=== PATIENT | male | born 1950 | race Caucasian/White ===

== ENCOUNTER → 2022-04-05 15:22 | Outpatient (BNVA) | payer MEDICARE, SELFPAY | PROVIDERS: PCP Internal Medicine; Visit Provider Psychiatry & Neurology Neurology | DX: G20 Parkinson's disease (principal); F03.90 Unspecified dementia, unspecified severity, without behavioral disturbance, psychotic disturbance, mood disturbance, and anxiety; R44.3 Hallucinations, unspecified | CPT/HCPCS: Q3014 ==

== ENCOUNTER 2022-05-02 10:08 | Emergency (ER) | payer MEDICARE, SELFPAY ==
--- NOTE | ~2022-05-02 | XR_ITS ---
EXAMINATION: XR CHEST CLINICAL INFORMATION: Acute mental status change COMPARISON: None TECHNIQUE: 2 views of the chest were obtained. FINDINGS: The cardiac silhouette is enlarged. Hilar and mediastinal contours are unremarkable. The lungs are are. There is no pleural effusion or pneumothorax. There are degenerative changes of the spine. There is distended bowel under the left hemidiaphragm. XR/XR chest 2V IMPRESSION: Enlarged cardiac silhouette. Distended bowel below the left hemidiaphragm.
--- NOTE | ~2022-05-02 | CT_ITS ---
EXAMINATION: CT ABDOMEN AND PELVIS WITHOUT CONTRAST CLINICAL INFORMATION: Distended bowel. Mental status change. COMPARISON: None TECHNIQUE: Multidetector volumetric imaging was performed from the superior aspect of the liver through the pubic symphysis. Sagittal and coronal reformatted images were obtained on the technologist's workstation. This CT examination was performed using dose optimization techniques as appropriate, variously including the following: *Automated exposure control *Adjustment of mA and/or kV according to patient size (this includes techniques or standardized protocols for targeted exams where dose is matched to indication/reason for exam; i.e. extremities or head) *Use of iterative reconstruction technique DLP: 789 mGy-cm FINDINGS: LUNG BASES: The visualized lung bases are unremarkable. LIVER, GALLBLADDER, AND BILIARY TREE: The liver is normal in size, shape, and attenuation. No focal hepatic lesion or biliary ductal dilatation is present. The gallbladder is unremarkable with no evidence of radiopaque gallstones, gallbladder wall thickening, or obvious pericholecystic inflammatory changes. PANCREAS: Unremarkable. SPLEEN: Unremarkable. ADRENAL GLANDS: Unremarkable. KIDNEYS AND URETERS: There is moderate to severe bilateral hydronephrosis. There are multiple small bilateral renal stones. There are bilateral renal cysts. Left ureter is dilated down to the bladder. The right ureter is difficult to follow but also appears dilated. BLADDER: The bladder is very full. GASTROINTESTINAL TRACT: The stomach is dilated and air-filled. There is a large amount of stool throughout the colon. Colon is a slightly dilated. The small bowel does not appear dilated. The appendix is normal.. ABDOMINAL WALL: There is a small umbilical hernia containing fat. LYMPH NODES: Normal. VASCULAR: Unremarkable. PELVIC VISCERA: The prostate gland is slightly enlarged measuring 3.7 x 4.9 cm in AP and transverse dimension. OSSEOUS STRUCTURES: There is severe arthritis at the right hip. There are mild degenerative changes of the spine and left hip. CT/CT abdomen pelvis wo con IMPRESSION: Very distended bladder. Moderate to severe bilateral hydronephrosis and ureteral dilatation. Small bilateral renal stones. Bilateral renal cysts. Severe constipation//obstipation. Air-filled distended stomach. No caliber change or transition zone to suggest mechanical obstruction. Fleischner guidelines were followed.
--- NOTE | ~2022-05-02 | CT_ITS ---
EXAMINATION: CT CHEST WITHOUT CONTRAST CLINICAL INFORMATION: Acute mental status change. Enlarged cardiac silhouette. COMPARISON: Previous chest x-ray from earlier the same day TECHNIQUE: Multidetector volumetric CT imaging of the chest was done. Axial MIP volume rendering provided. Sagittal and coronal reformatted images were obtained. This CT examination was performed using dose optimization techniques as appropriate, variously including the following: *Automated exposure control *Adjustment of mA and/or kV according to patient size (this includes techniques or standardized protocols for targeted exams where dose is matched to indication/reason for exam; i.e. extremities or head) *Use of iterative reconstruction technique DLP: 348 mGy-cm FINDINGS: ENVIRONMENTAL HEALTH SPECIALIST: LUNGS: There are patchy areas of groundglass attenuation seen in the right upper lobe and superior segment of the right lower lobe. This has a peribronchial distribution and may be related to airways disease. There is a 2 mm right upper lobe nodule axial image 109. There is a 2 mm calcified right upper lobe nodule axial image 128 series 9. There is a 2 mm calcified left upper lobe nodule axial image 219 series 9. There is a 2 mm calcified right lower lobe nodule axial image 327 series 9. There is a 2 mm question calcified left lower lobe nodule axial image 312 series 9 image 346 series 9. There is a 4 mm noncalcified left lower lobe nodule axial image 358 series 9. There is dependent atelectasis at the lung bases. MEDIASTINUM: The heart size is normal. There is no pericardial effusion. There is wall thickening of the distal thoracic esophagus. There are no enlarged hilar or mediastinal lymph nodes. The visualized thyroid gland is normal. PLEURA: There is no pleural effusion. No pleural mass or thickening. AXILLA: No lymphadenopathy. UPPER ABDOMEN: See CT of the abdomen and pelvis from the same day OSSEOUS STRUCTURES: There are mild degenerative changes of the spine. CT/CT chest wo con IMPRESSION: Normal heart size. Wall thickening of the mid and distal thoracic aorta. Patchy groundglass attenuation areas in the right upper lobe and superior segment right lower lobe question representing airways disease. Small calcified and noncalcified pulmonary nodules or micronodules. According to the UPDATED 2017 Fleischner Society recommendations, the advised follow-up imaging for less than 6 mm solid nodule: Low risk, no chest CT follow-up and high risk, optional chest CT follow-up in one year. Fleischner guidelines were followed.
--- NOTE | ~2022-05-02 | CT_ITS ---
EXAMINATION: CT HEAD WITHOUT CONTRAST CLINICAL INFORMATION: Altered mental status COMPARISON: None TECHNIQUE: Contiguous axial imaging was performed from the skull base to vertex without intravenous administration of contrast. Additional 2-D coronal and sagittal reformatted images are generated on the CT workstation and uploaded to PACS. This CT examination was performed using dose optimization techniques as appropriate, variously including the following: *Automated exposure control *Adjustment of mA and/or kV according to patient size (this includes techniques or standardized protocols for targeted exams where dose is matched to indication/reason for exam; i.e. extremities or head) *Use of iterative reconstruction technique DLP: 863 mGy-cm FINDINGS: There is no intracranial hemorrhage, hematoma, or extra-axial fluid collection. The ventricles are normal in size. There is no hydrocephalus, edema, or mass effect. There are mild atrophic changes with prominence of the cortical sulci. Saenz-white matter differentiation appears symmetric. There is no visible acute territorial infarct or mass lesion. The calvarium appears intact. There is no pneumocephalus or orbital emphysema. The visualized sinuses and middle ears and mastoid air cells show no significant mucosal thickening. There are no air-fluid levels. CT/CT head/brain wo con IMPRESSION: No acute intracranial abnormality.
[2022-05-02 10:17] VITALS: BP 135/75; PULSE 84; O2SAT 98; BMI 25.4
--- NOTE | 2022-05-02 10:24 | ED_ITS ---
HPI - General Adult General Chief complaint: Altered Mental Status Stated complaint: +COVID ,WEAK Time Seen by Provider: 05/02/22 10:24 Source: patient and EMS Mode of arrival: EMS Limitations: altered mental status History of Present Illness HPI narrative: Patient is a 71 year old male presenting to the emergency department today with altered mental status, COVID-19, and diarrhea. Patient is unable to appropriately answer my questions. Staff at [facility], where the patient comes from, states that the patient is more altered than usual and has been having diarrhea, often. Staff states that the patient was COVID-19 positive as of 9 days ago and has a history of parkinsons disease. Staff also states that the patient is on doxycycline for a left lower leg infection. Onset (ago): day(s) Radiation: non-radiation Severity: moderate Severity scale (1-10): 5 Relieving factors: none Exacerbating factors: none Associated symptoms: confusion Treatments prior to arrival: none Related Data Home Medications Medication Instructions Recorded Confirmed acetaminophen 325 mg tablet 650 mg PO BID PRN 04/05/22 04/05/22 (Tylenol) carbidopa 25 mg-levodopa 100 mg 1 tab PO QID 04/05/22 04/05/22 tablet Previous Rx's Medication Instructions Recorded carbidopa ER 25 mg-levodopa 100 mg 1 tab PO BEDTIME #90 tabs 11/26/21 tablet,extended release citalopram 20 mg tablet 20 mg PO DAILY #30 tabs 01/19/22 pimavanserin 10 mg tablet 10 mg PO DAILY #30 tabs 04/05/22 (Nuplazid) memantine 14 mg capsule 14 mg PO DAILY #90 caps 04/11/22 sprinkle,extended release 24hr Allergies Allergy/AdvReac Type Severity Reaction Status Date / Time Unable to Assess Allergy Verified 05/02/22 10:28 Review of Systems Review of Systems: Yes Unobtainable due to mental status Constitutional: Constitutional: Reports no additional constitutional com plaints, Denies chills, Denies fever(s) and Denies night sweats Eyes: Eyes: Reports no additional eye complaints, Denies blurry vision, Denies change in vision, Denies diplopia, Denies eye discharge, Denies loss of vision and Denies eye pain ENT: Denies dizziness Cardiovascular: Cardiovascular: Reports no additional cardiovascular complaints, Denies chest pain, Denies lightheadedness, Denies Loss of Consciousness and Denies dyspnea Respiratory: Respiratory: Reports no additional respiratory complaints and Denies dyspnea Gastrointestinal: Gastrointestinal: Reports no additional gastrointestinal complaints, Denies abdominal pain, Denies melena, Denies hematochezia, Denies change in bowel habits and Denies change in stool character Genitourinary: Genitourinary: Reports no additional male genitourinary complaints, Denies hematuria, Denies oliguria, Denies difficulty urinating, Denies dysuria, Denies urinary frequency, Denies urinary hesitancy, Denies urinary incontinence and Denies urinary urgency Musculoskeletal: Musculoskeletal: Reports no additional musculoskeletal complaints, Denies numbness and Denies tingling Neurologic: Reports confusion, Denies dizziness, Denies loss of vision, Denies numbness and Denies tingling Psychiatric: Psychiatric: Reports no additional psychiatric complaints and Reports confusion Endocrine: Endocrine: Reports no additional endocrine complaints Hematologic/Lymphatic: Hematologic/Lymphatic: Reports no additional hematologic/lymphatic complaints Allergic/Immunologic: Allergic/Immunologic: Reports no additional allergic/immunologic complaints PMFSH Past Medical History Attestation statement: The following information was validated with the patient. (validated with patient's daughter) Source: old records reviewed and obtained from family (patient's daughter) Surgical History Hx of knee surgery Family History Family History Father Brain tumor Social History Social History Alcohol intake: never Patient Tobacco Use Status: Never used Tobacco Advance Directives: No Advance Directives Information Provided: No Physical Exam ED Vital Signs: Vital Signs - 24 hr 05/02/22 10:48 05/02/22 18:00 05/02/22 19:54 Temperature 99.2 F 99.5 F Pulse Rate 79 69 82 Respiratory Rate 16 12 14 Blood Pressure 137/89 145/63 H 135/87 Pulse Oximetry 98 98 Oxygen Delivery Method Room Air Room Air BMI result Body Mass Index 25.4 Const General: cooperative, no acute distress, alert, awake and confusion Nutritional Appearance: well nourished Orientation/consciousness: confusion Limitations: no limitations HENMT Head: Yes normal to inspection and Yes atraumatic Ears: hearing grossly normal bilaterally and external ears normal General nose exam: Normal external nose present, no nasal discharge noted and no epistaxis Face and sinus: Yes normal facial exam, No abrasion and No laceration Mouth: Normal oral and palatal mucosa present, no drooling and no muffled voice Eyes General: appearance normal, both eyes and all related structures Periorbital: periorbital findings normal Eyelids: Yes eyelids normal Conjunctivae: conjunctivae normal Pupils: Equal, round and reactive pupils present EOM: EOMs intact bilaterally Neck Neck: Yes normal visual inspection, Yes full ROM and Yes no lymphadenopathy Chest Chest palpation & inspection: normal inspection of the chest Resp Effort & Inspection: normal respiratory effort and able to speak in complete sentences Auscultation: clear to auscultation bilaterally Cardio Rate: regular rate Rhythm: regular rhythm GI Inspection: Yes normal to inspection Neuro General: moves all extremities and confusion Cranial nerves: Yes Equal, round and reactive pupils present Extrem General: Yes normal to inspection, Yes full ROM and Yes capillary refill normal Psych Appearance: grossly normal Mental Status: mental status grossly normal Affect: normal affect Attitude: cooperative Thought process: Normal thought process present Thought content: Normal thought content present Insight: Good insight present (Psych) Medical Decision Making MDM Narrative Medical decision making narrative: Patient is a 71 year old male presenting to the emergency department today with altered mental status. Patient's physical exam showed a profoundly confused individual. Patient's blood work was unremarkable. Patient's urine showed no acute process. Patient's EKG was unremarkable. Patient's chest x-ray showed an enlarged cardiac silhouette and distended bowel below the left hemidiaphragm. Patient's head CT was normal. Patient's chest CT was unremarkable. Patient's abdominal CT showed a markedly distended bladder and a very large stool burden but no signs of mechanical obstruction. Patient had a fonseca catheter placed which immediately expelled 1,500mL of urine. I explained my physical exam findings as well as all test results to the patient and the patient's daughter. I answered all questions asked by the patient and the patient's daughter. Patient is going to receive an enema to assist with the constipation. Patient ne eds to be placed in retirement and not return to his assisted living facility. Case management is aware of the patient and working on placement. At 1100, patient was determined to not have Sepsis or to be in septic shock. Differential Diagnosis Differential Diagnosis: constipation, urinary retention, failure to thrive, weakness Medical Records Medical records reviewed: Yes I reviewed the patient's medical records. Lab Data Lab results reviewed: Yes I reviewed the patient's lab results. Result diagrams: 05/02/22 10:43 05/02/22 10:43 Labs: Lab Results 05/02/22 05/02/22 05/02/22 Range/Units 10:43 10:43 10:43 WBC 6.7 (4.8-10.8) X10*3/uL RBC 3.83 L (4.60-5.80) X10*6/uL Hgb 11.3 L (14.0-18.0) g/dl Hct 35.7 L (42.0-52.0) % MCV 93.2 (80.0-98.0) fL MCH 29.5 (27.0-33.0) pg MCHC 31.7 (31.0-36.0) g/dl RDW 15.1 (11.0-16.0) % Plt Count 261 (160-400) X10*3/uL MPV 8.9 L (9.4-12.4) fL Immature Gran % (Auto) 0.6 H (0.0-0.4) % Neut % (Auto) 72.7 (45-73) % Lymph % (Auto) 17.7 L (20-40) % [place] % (Auto) 8.5 (2-11) % Eos % (Auto) 0.4 (0-4) % Baso % (Auto) 0.1 (0-2) % Lymph # (Auto) 1.2 (1.2-4.9) X10*3/uL [place] # (Auto) 0.6 (0.1-1.2) X10*3/uL Eos # (Auto) 0.0 (0.0-0.4) X10*3/uL Baso # (Auto) 0.0 (0.0-0.2) X10*3/uL Abs Immat Gran (auto) 0.04 H (0.00-0.03) X10*3/uL Absolute Neuts (auto) 4.9 (2.0-8.3) x10*3/uL Absolute Nucleated RBC 0.000 (0.0-0.012) X10*3/uL Nucleated RBC % (auto) 0.0 (0.0-0.2) /100WBC VBG pH (7.32-7.43) VBG pCO2 mmHg VBG pO2 mmHg VBG HCO3 (22-26) mmol/L VBG O2 Saturation % VBG Base Excess mmol/L Sodium 143 (135-145) mmol/L Potassium 4.1 (3.3-5.1) mmol/L Chloride 109 H (96-108) mmol/L Carbon Dioxide 27 (22-29) mmol/L Anion Gap 11 L (12-20) BUN 31 H (9-16) mg/dL Creatinine 1.02 (0.5-1.4) mg/dL Estim Creat Clear Calc 64.2 Estimated GFR > 60 Random Glucose 98 (60-115) mg/dL Lactic Acid 1.0 (0.5-2.0) mmol/L Calcium 9.7 (8.4-10.2) mg/dL Magnesium 2.4 (1.6-2.6) mg/dL Total Bilirubin 0.8 (0.0-1.0) mg/dL AST 9 (5-37) U/L ALT 6 (0-40) U/L Alkaline Phosphatase 105 (39-117) U/L Troponin I High Sens (<3.5-35.0) ng/L B-Natriuretic Peptide (<100) pg/mL Total Protein 7.5 (6.5-8.0) g/dL Albumin 4.5 (3.5-5.0) g/dL COVID-19 (JUAN) (Negative) COVID-19 Clin Com Influenza Type A (DANUTA) (Negative) Influenza Type B (DANUTA) (Negative) Influenza A & B Note 05/02/22 05/02/22 05/02/22 Range/Units 10:43 10:46 10:54 WBC (4.8-10.8) X10*3/uL RBC (4.60-5.80) X10*6/uL Hgb (14.0-18.0) g/dl Hct (42.0-52.0) % MCV (80.0-98.0) fL MCH (27.0-33.0) pg MCHC (31.0-36.0) g/dl RDW (11.0-16.0) % Plt Count (160-400) X10*3/uL MPV (9.4-12.4) fL Immature Gran % (Auto) (0.0-0.4) % Neut % (Auto) (45-73) % Lymph % (Auto) (20-40) % [place] % (Auto) (2-11) % Eos % (Auto) (0-4) % Baso % (Auto) (0-2) % Lymph # (Auto) (1.2-4.9) X10*3/uL [place] # (Auto) (0.1-1.2) X10*3/uL Eos # (Auto) (0.0-0.4) X10*3/uL Baso # (Auto) (0.0-0.2) X10*3/uL Abs Immat Gran (auto) (0.00-0.03) X10*3/uL Absolute Neuts (auto) (2.0-8.3) x10*3/uL Absolute Nucleated RBC (0.0-0.012) X10*3/uL Nucleated RBC % (auto) (0.0-0.2) /100WBC VBG pH 7.34 (7.32-7.43) VBG pCO2 41 mmHg VBG pO2 43 mmHg VBG HCO3 22 (22-26) mmol/L VBG O2 Saturation 66.0 % VBG Base Excess -2.9 mmol/L Sodium (135-145) mmol/L Potassium (3.3-5.1) mmol/L Chloride (96-108) mmol/L Carbon Dioxide (22-29) mmol/L Anion Gap (12-20) BUN (9-16) mg/dL Creatinine (0.5-1.4) mg/dL Estim Creat Clear Calc Estimated GFR Random Glucose (60-115) mg/dL Lactic Acid (0.5-2.0) mmol/L Calcium (8.4-10.2) mg/dL Magnesium (1.6-2.6) mg/dL Total Bilirubin (0.0-1.0) mg/dL AST (5-37) U/L ALT (0-40) U/L Alkaline Phosphatase (39-117) U/L Troponin I High Sens < 3.5 (<3.5-35.0) ng/L B-Natriuretic Peptide 28 (<100) pg/mL Total Protein (6.5-8.0) g/dL Albumin (3.5-5.0) g/dL COVID-19 (JUAN) (Negative) COVID-19 Clin Com Influenza Type A (DANUTA) Negative (Negative) Influenza Type B (DANUTA) Negative (Negative) Influenza A & B Note See Note 05/02/22 Range/Units 19:18 WBC (4.8-10.8) X10*3/uL RBC (4.60-5.80) X10*6/uL Hgb (14.0-18.0) g/dl Hct (42.0-52.0) % MCV (80.0-98.0) fL MCH (27.0-33.0) pg MCHC (31.0-36.0) g/dl RDW (11.0-16.0) % Plt Count (160-400) X10*3/uL MPV (9.4-12.4) fL Immature Gran % (Auto) (0.0-0.4) % Neut % (Auto) (45-73) % Lymph % (Auto) (20-40) % [place] % (Auto) (2-11) % Eos % (Auto) (0-4) % Baso % (Auto) (0-2) % Lymph # (Auto) (1.2-4.9) X10*3/uL [place] # (Auto) (0.1-1.2) X10*3/uL Eos # (Auto) (0.0-0.4) X10*3/uL Baso # (Auto) (0.0-0.2) X10*3/uL Abs Immat Gran (auto) (0.00-0.03) X10*3/uL Absolute Neuts (auto) (2.0-8.3) x10*3/uL Absolute Nucleated RBC (0.0-0.012) X10*3/uL Nucleated RBC % (auto) (0.0-0.2) /100WBC VBG pH (7.32-7.43) VBG pCO2 mmHg VBG pO2 mmHg VBG HCO3 (22-26) mmol/L VBG O2 Saturation % VBG Base Excess mmol/L Sodium (135-145) mmol/L Potassium (3.3-5.1) mmol/L Chloride (96-108) mmol/L Carbon Dioxide (22-29) mmol/L Anion Gap (12-20) BUN (9-16) mg/dL Creatinine (0.5-1.4) mg/dL Estim Creat Clear Calc Estimated GFR Random Glucose (60-115) mg/dL Lactic Acid (0.5-2.0) mmol/L Calcium (8.4-10.2) mg/dL Magnesium (1.6-2.6) mg/dL Total Bilirubin (0.0-1.0) mg/dL AST (5-37) U/L ALT (0-40) U/L Alkaline Phosphatase (39-117) U/L Troponin I High Sens (<3.5-35.0) ng/L B-Natriuretic Peptide (<100) pg/mL Total Protein (6.5-8.0) g/dL Albumin (3.5-5.0) g/dL COVID-19 (JUAN) Positive A (Negative) COVID-19 Clin Com See Note Influenza Type A (DANUTA) (Negative) Influenza Type B (DANUTA) (Negative) Influenza A & B Note Imaging Data CT scan - head: Attestation: I personally reviewed and interpreted this imaging study as follows: My impression: No acute process. Radiologist's impression: EXAMINATION: CT HEAD WITHOUT CONTRAST CLINICAL INFORMATION: Altered mental status? COMPARISON: None TECHNIQUE: Contiguous axial imaging was performed from the skull base to vertex without intravenous administration of contrast.? Additional 2-D coronal and sagittal reformatted images are generated on the CT workstation and uploaded to PACS. This CT examination was performed using dose optimization techniques as appropriate, variously including the following: *Automated exposure control *Adjustment of mA and/or kV according to patient size (this includes techniques or standardized protocols for targeted exams where dose is matched to indication/reason for exam; i.e. extremities or head) *Use of iterative reconstruction technique DLP: 863 mGy-cm FINDINGS: There is no intracranial hemorrhage, hematoma, or extra-axial fluid collection.? The ventricles are normal in size. There is no hydrocephalus, edema, or mass effect.? There are mild atrophic changes with prominence of the cortical sulci. Saenz-white matter differentiation appears symmetric. There is no visible acute territorial infarct or mass lesion. The calvarium appears intact. There is no pneumocephalus or orbital emphysema.? The visualized sinuses and middle ears and mastoid air cells show no significant mucosal thickening. There are no air-fluid levels. CT/CT head/brain wo con IMPRESSION: No acute intracranial abnormality. Dictated By: Stanford Rhodes MD Signed By: Electronically signed by Stanford Rhodes MD 05/02/22 1245 Chest x-ray: Attestation: I personally reviewed and interpreted this imaging study as follows: My impression: Widened cardiac silhouette. Radiologist's impression: EXAMINATION: XR CHEST CLINICAL INFORMATION: Acute mental status change COMPARISON: None TECHNIQUE: 2 views of the chest were obtained. FINDINGS: The cardiac silhouette is enlarged. Hilar and mediastinal contours are unremarkable. The lungs are are. There is no pleural effusion or pneumothorax. There are degenerative changes of the spine. There is distended bowel under the left hemidiaphragm. XR/XR chest 2V IMPRESSION: Enlarged cardiac silhouette. Distended bowel below the left hemidiaphragm. Dictated By: Chani Zambrano MD Signed By: Electronically signed by Chani Zambrano MD 05/02/[address] scan - chest: Attestation: I personally reviewed and interpreted this imaging study as follows: My impression: No acute process. Radiologist's impression: EXAMINATION: CT CHEST WITHOUT CONTRAST CLINICAL INFORMATION: Acute mental status change. Enlarged cardiac silhouette.? COMPARISON: Previous chest x-ray from earlier the same day? TECHNIQUE: Multidetector volumetric CT imaging of the chest was done. Axial MIP volume rendering provided. Sagittal and coronal reformatted images were obtained.? This CT examination was performed using dose optimization techniques as appropriate, variously including the following: *Automated exposure control *Adjustment of mA and/or kV according to patient size (this includes techniques or standardized protocols for targeted exams where dose is matched to indication/reason for exam; i.e. extremities or head) *Use of iterative reconstruction technique DLP: 348 mGy-cm FINDINGS: PRICE LISTER: LUNGS: There are patchy areas of groundglass attenuation seen in the right upper lobe and superior segment of the right lower lobe. This has a peribronchial distribution and may be related to airways disease. There is a 2 mm right upper lobe nodule axial image 109. There is a 2 mm calcified right upper lobe nodule axial image 128 series 9. There is a 2 mm calcified left upper lobe nodule axial image 219 series 9. There is a 2 mm calcified right lower lobe nodule axial image 327 series 9. There is a 2 mm question calcified left lower lobe nodule axial image 312 series 9 image 346 series 9. There is a 4 mm noncalcified left lower lobe nodule axial image 358 series 9. There is dependent atelectasis at the lung bases. MEDIASTINUM: The heart size is normal. There is no pericardial effusion. There is wall thickening of the distal thoracic esophagus. There are no enlarged hilar or mediastinal lymph nodes. The visualized thyroid gland is normal. PLEURA: There is no pleural effusion. No pleural mass or thickening.? AXILLA: No lymphadenopathy.? UPPER ABDOMEN: See CT of the abdomen and pelvis from the same day OSSEOUS STRUCTURES: There are mild degenerative changes of the spine.? CT/CT chest wo con IMPRESSION: Normal heart size. Wall thickening of the mid and distal thoracic aorta. Patchy groundglass attenuation areas in the right upper lobe and superior segment right lower lobe question representing airways disease. Small calcified and noncalcified pulmonary nodules or micronodules. According to the UPDATED 2017 Fleischner Society recommendations, the advised follow-up imaging for less than 6 mm solid nodule: Low risk, no chest CT follow-up and high risk, optional chest CT follow-up in one year. ? Fleischner guidelines were followed. Dictated By: Chani Zambrano MD Signed By: Electronically signed by Chani Zambrano MD 05/02/[address] scan - abdomen: Attestation: I personally reviewed and interpreted this imaging study as follows: My impression: Large stool burden and very distended bladder. Radiologist's impression: EXAMINATION: CT ABDOMEN AND PELVIS WITHOUT CONTRAST? CLINICAL INFORMATION: Distended bowel. Mental status change.? COMPARISON: None TECHNIQUE: Multidetector volumetric imaging was performed from the superior aspect of the liver through the pubic symphysis. Sagittal and coronal reformatted images were obtained on the technologist's workstation.? This CT examination was performed using dose optimization techniques as appropriate, variously including the following: *Automated exposure control *Adjustment of mA and/or kV according to patient size (this includes techniques or standardized protocols for targeted exams where dose is matched to indication/reason for exam; i.e. extremities or head) *Use of iterative reconstruction technique DLP: 789 mGy-cm FINDINGS: LUNG BASES: The visualized lung bases are unremarkable.? LIVER, GALLBLADDER, AND BILIARY TREE: The liver is normal in size, shape, and attenuation. No focal hepatic lesion or biliary ductal dilatation is present. The gallbladder is unremarkable with no evidence of radiopaque gallstones, gallbladder wall thickening, or obvious pericholecystic inflammatory changes.? PANCREAS: Unremarkable.? SPLEEN: Unremarkable.? ADRENAL GLANDS: Unremarkable.? KIDNEYS AND URETERS: There is moderate to severe bilateral hydronephrosis. There are multiple small bilateral renal stones. There are bilateral renal cysts. Left ureter is dilated down to the bladder. The right ureter is difficult to follow but also appears dilated. BLADDER: The bladder is very full. GASTROINTESTINAL TRACT: The stomach is dilated and air-filled. There is a large amount of stool throughout the colon. Colon is a slightly dilated. The small bowel does not appear dilated. The appendix is normal..? ABDOMINAL WALL: There is a small umbilical hernia containing fat.? LYMPH NODES: Normal. VASCULAR: Unremarkable. PELVIC VISCERA: The prostate gland is slightly enlarged measuring 3.7 x 4.9 cm in AP and transverse dimension.? OSSEOUS STRUCTURES: There is severe arthritis at the right hip. There are mild degenerative changes of the spine and left hip.? CT/CT abdomen pelvis wo con IMPRESSION: Very distended bladder. Moderate to severe bilateral hydronephrosis and ureteral dilatation. Small bilateral renal stones. Bilateral renal cysts. Severe constipation//obstipation. Air-filled distended stomach. No caliber change or transition zone to suggest mechanical obstruction. ? Fleischner guidelines were followed. Dictated By: Chani Zambrano MD Signed By: Electronically signed by Chani Zambrano MD 05/02/22 7043 ECG Data Attestation: I personally reviewed and interpreted this ECG as follows: Prior ECG tracings: not available for review Interpretation: Vent. Rate: 078 BPM ? ? Atrial Rate: 078 BPM P-R Int: 136 ms? QRS Dur: 086 ms QT Int: 404 ms ? ? ? P-R-T Axes: 044 -13 -25 degrees QTc Int: 460 ms ? Normal sinus rhythm Nonspecific T wave abnormality Prolonged QT Abnormal ECG No previous ECGs available DD/ 1038 Discharge Plan Discharge Clinical Impression: Dementia, Parkinson's disease, Constipation, Acute urinary retention Patient Disposition: Still a Patient Prescriptions: No Action carbidopa-levodopa 25-100 mg tablet extended release 1 tab PO BEDTIME Qty: 90 3RF citalopram 20 mg tablet 20 mg PO DAILY Qty: 30 6RF memantine 14 mg capsule,sprinkle,ER 24hr 14 mg PO DAILY Qty: 90 0RF carbidopa-levodopa 25-100 mg tablet 1 tab PO QID acetaminophen [Tylenol] 325 mg tablet 650 mg PO BID PRN Nuplazid 10 mg tablet 10 mg PO DAILY Qty: 30 0RF Print Language: Brazilian
--- NOTE | 2022-05-02 10:28 | ECG_ITS ---
Test Reason : WEAKNESS Blood Pressure : / mmHG Vent. Rate : 078 BPM Atrial Rate : 078 BPM P-R Int : 136 ms QRS Dur : 086 ms QT Int : 404 ms P-R-T Axes : 044 -13 -25 degrees QTc Int : 460 ms Normal sinus rhythm Nonspecific T wave abnormality Prolonged QT Abnormal ECG No previous ECGs available Referred By: Nallely Victoria Electronically Signed By:Dez Spence
[2022-05-02 10:48] VITALS: BP 137/89; PULSE 79; RESP 16; TEMP 37.3; O2SAT 98
[2022-05-02 10:57] LABS: MANUAL DIFF FLAG NO
[2022-05-02 10:59] LABS: VBG Base Excess -2.9 mmol/L; VBG HCO3 22 mmol/L (22-26); VBG pCO2 41 mmHg; VBG pH 7.34 (7.32-7.43); VBG pO2 43 mmHg
[2022-05-02 10:59] LABS: Basophils Percent Auto 0.1 % (0-2); Eosinophils Percent Auto 0.4 % (0-4); Hematocrit 35.7 % (42.0-52.0); Hemoglobin 11.3 g/dl (14.0-18.0); Imm Gran Abs Auto 0.04 X10*3/uL (0.00-0.03); Imm Gran Pct Auto 0.6 % (0.0-0.4); Lymphocytes Absolute Auto 1.2 X10*3/uL (1.2-4.9); Lymphocytes Percent Auto 17.7 % (20-40); Mean Corpuscular HGB Conc 31.7 g/dl (31.0-36.0); Mean Corpuscular Hemoglobin 29.5 pg (27.0-33.0); Mean Corpuscular Volume 93.2 fL (80.0-98.0); Mean Platelet Volume 8.9 fL (9.4-12.4); Monocytes Absolute Auto 0.6 X10*3/uL (0.1-1.2); Monocytes Percent Auto 8.5 % (2-11); Neutrophils Absolute Auto 4.9 x10*3/uL (2.0-8.3); Neutrophils Percent Auto 72.7 % (45-73); Platelet Count 261 X10*3/uL (160-400); Red Blood Count 3.83 X10*6/uL (4.60-5.80); Red Cell Distribution Width 15.1 % (11.0-16.0); White Blood Count 6.7 X10*3/uL (4.8-10.8)
[2022-05-02 11:01] LABS: Venous Blood Gas Refer to POC result
[2022-05-02 11:13] LABS: Alanine Aminotransferase 6 U/L (0-40); Albumin Level 4.5 g/dL (3.5-5.0); Alkaline Phosphatase 105 U/L (39-117); Anion Gap 11 (12-20); Aspartate Amino Transferase 9 U/L (5-37); Bilirubin Total 0.8 mg/dL (0.0-1.0); Blood Urea Nitrogen 31 mg/dL (9-16); Calcium 9.7 mg/dL (8.4-10.2); Carbon Dioxide 27 mmol/L (22-29); Chloride 109 mmol/L (96-108); Creatinine Clr Calc Pharmacy 64.2; Estimated Glomerular Filt Rate > 60; Glucose Random 98 mg/dL (60-115); Magnesium 2.4 mg/dL (1.6-2.6); Potassium 4.1 mmol/L (3.3-5.1); Sodium 143 mmol/L (135-145); Total Protein 7.5 g/dL (6.5-8.0)
[2022-05-02 11:17] LABS: Influenza A Negative (Negative); Influenza B2 Negative (Negative)
[2022-05-02 11:38] LABS: B Type Natriuretic Peptide 28 pg/mL (<100)
[2022-05-02 11:42] LABS: Troponin-I High Sensitivity < 3.5 ng/L (<3.5-35.0)
[2022-05-02] MEDS: 0.9 % Sodium Chloride 1,000 ML 200 ML IVCONT (14:10)
--- NOTE | 2022-05-02 17:03 | MHC.CM.PN ---
Met with patient at the request of Nallely SETHI. Pt not safe to return to assisted living at this time. Pt with AMS and urinary retention. Pt had F/C placed. Pt from [facility]. Attempted to meet with patient, however pt is confused and unable to answer CM questions. CM spoke with daughter/HCP Lakeisha Okeefechristopher ([phone]). Daughter tells CM that pt has been declining over the -past several weeks and recently moved into [facility]. Pt was recently hospitalized at [facility] for 6 weeks for food impaction in his esophagus, was at [facility] and at [facility]. Daughter requests that referral be made to acute rehab and to [facility] half-way. CM explained that pt is confused and may not qualify for acute rehab. Referrals placed at acute rehab as requested and at [facility]. CM spoke with RN at [facility], who tells CM there are no beds at the snf facility today. Will look to see if they expect any bed opening tomorrow. Referral placed at [facility]. Vax/boosted x1/Pf[employer]. Pt tested positive for Covid 19 at [facility] on 04/25/22. Daughter tells CM she has been staying with patient. [place] HCP/POA requested from [facility]. Pt uses a walker. D/C plan: acute/STR. Will need transportation.
[2022-05-02 18:00] VITALS: BP 145/63; PULSE 69; RESP 12; TEMP 37.5; O2SAT 98
--- NOTE | 2022-05-02 18:13 | PC.NURSE ---
Pt alert oriented x 2 at this time. Hinojosa placed for retention, 1500CC output. IV established, soap pam enema given with minimal effect. MD aware, awaiting dispo. Will continue to monitor.
[2022-05-02 19:32] LABS: IDNOW Serial# 16C4AD1C
[2022-05-02 19:33] LABS: COVID-19 Test Positive (Negative)
[2022-05-02 19:54] VITALS: BP 135/87; PULSE 82; RESP 14; O2SAT 98
[2022-05-02 22:00] VITALS: BP 151/79; PULSE 60; RESP 17; O2SAT 98
--- NOTE | 2022-05-02 22:26 | PC.NURSE ---
pt a&ox2, denies any pain at this time, fonseca patent and draining. 1400ml dark yellow urine emptied.
--- NOTE | 2022-05-02 23:09 | PC.NURSE ---
Patient is alert and oriented x2, confused at times. patient denies any pain at present. Patient had moderate, brown, soft BM-pericare provided-patient repositioned to left side and propped with pillows.
[2022-05-03] VITALS: PULSE 74; RESP 16
[2022-05-03 06:00] VITALS: BP 121/42; PULSE 69; RESP 16; TEMP 36.6; O2SAT 97
--- NOTE | 2022-05-03 06:14 | PC.NURSE ---
PATIENT LOPEZ CATHETER OUTPUT WAS 1000 ML ,PATIENT HAD A MODERATE DARK BOWEL MOVEMENT ,BED BATH GIVEN ,PATIENT HAD SIPS OF WATER TO DRINK .
[2022-05-03 10:22] VITALS: BP 122/61; PULSE 58; RESP 18; TEMP 36.6; O2SAT 100
--- NOTE | 2022-05-03 11:01 | PC.NURSE ---
slept most of the morning, awoke at 1000, aware of where he is and the year but otherwise slightly confused, unsure how long he's been here or why. declined breakfast
--- NOTE | 2022-05-03 11:17 | PHA.MEDREC ---
Pharmacy Consult ? Medication Reconciliation Pharmacy has completed the medication reconciliation. Had a medication list fax from [facility]. Rosa Roque, ConradD
--- NOTE | 2022-05-03 12:08 | MHC.CM.ED ---
Addendum entered by Carmella Puckett 05/03/22 13:13: Patient is active with [facility]. Copy of med list obtained. Neither [facility] or [facility] are able to offer a bed. Addendum entered by Carmella Puckett 05/03/22 12:08: Patient originally tested positive for Covid on 04/25 at [facility]. Original Note: Patient remains in ER. PT and OT evals completed. Clinical updates sent to [facility]. [facility] is not able to offer a bed at this time. Continue to monitor for d/c needs.
--- NOTE | 2022-05-03 13:51 | MHC.CM.ED ---
[facility] can accept patient on 05/06, which is 11 days after the original positive Covid test. Patient's daughter, Lakeisha made aware and agreeable. Continue to monitor for d/c needs.
[2022-05-03 14:00] VITALS: RESP 16
--- NOTE | 2022-05-03 15:45 | PC.NURSE ---
Pt moved to hospital bed. pericare done.
--- NOTE | 2022-05-03 20:11 | PC.NURSE ---
PATIENT REFUSED DINNER ,BUT DRANK 120 ML JUICE .
[2022-05-03] MEDS: Melatonin 3 MG TABLET 6 MG PO (20:25)
[2022-05-03] MEDS: Carbidopa/Levodopa CR 25/100 TABLET.ER 1 TAB PO (20:39)
[2022-05-03 22:58] VITALS: BP 143/63; PULSE 63; RESP 16; TEMP 37.1; O2SAT 97
--- NOTE | 2022-05-03 22:59 | PC.NURSE ---
PATIENT LOPEZ OUT PUT IS 600 ML ,PATIENT GOT CLEAN AND REPOSITION
[2022-05-04 05:25] VITALS: BP 154/85; PULSE 70; RESP 16; O2SAT 97
[2022-05-04] MEDS: Omeprazole 20 MG CAPSULE.DR PO ×2 (05:51→17:42)
[2022-05-04] MEDS: Acetaminophen 325 MG TABLET 650 MG PO ×3 (05:51→19:03)
[2022-05-04] MEDS: Carbidopa/Levodopa 25/100 TABLET 1.5 TAB PO ×4 (05:52→19:11)
--- NOTE | 2022-05-04 09:24 | MHC.CM.ED ---
Patient remains in ER. Patient can transfer to [facility] on 05/06. Continue to monitor for d/c needs.
[2022-05-04] MEDS: Ibuprofen 600 MG TABLET PO ×2 (10:30→15:36)
[2022-05-04] MEDS: Multivitamin TABLET 1 TAB PO (10:31)
[2022-05-04] MEDS: Escitalopram Oxalate 10 MG TABLET PO (10:31)
[2022-05-04 14:20] VITALS: BP 128/71; PULSE 67; RESP 16; O2SAT 97
--- NOTE | 2022-05-04 18:09 | PC.NURSE ---
Pt has been in and out of sleep throughout the day. Assisted to commode. Alert, requiring occasional reorienting. Eating and drinking well. c/o chronic bilat hip pain, medicated as per emr.
--- NOTE | 2022-05-04 21:25 | PC.NURSE ---
medication requested from pharamcy
[2022-05-04 22:21] VITALS: BP 117/73; PULSE 72; RESP 13; TEMP 36.6; O2SAT 95
[2022-05-04] MEDS: Carbidopa/Levodopa CR 25/100 TABLET.ER 1 TAB PO (22:27)
[2022-05-05] MEDS: Omeprazole 20 MG CAPSULE.DR PO ×2 (05:41→17:20)
[2022-05-05] MEDS: Acetaminophen 325 MG TABLET 650 MG PO ×3 (05:41→19:12)
[2022-05-05] MEDS: Carbidopa/Levodopa 25/100 TABLET 1.5 TAB PO ×5 (05:41→19:12)
[2022-05-05 05:46] VITALS: BP 112/79; PULSE 69; RESP 14; TEMP 36.5; O2SAT 96
--- NOTE | 2022-05-05 07:12 | PC.NURSE ---
report taken from ginna rn- pt sleeping in bed. resp even and unlabored.nad at this time.
[2022-05-05] MEDS: Ibuprofen 600 MG TABLET PO ×2 (07:48→17:20)
[2022-05-05] MEDS: Escitalopram Oxalate 10 MG TABLET PO (07:49)
[2022-05-05] MEDS: Multivitamin TABLET 1 TAB PO (07:49)
[2022-05-05 07:52] VITALS: BP 122/76; PULSE 79; RESP 15; O2SAT 96
--- NOTE | 2022-05-05 12:15 | MHC.CM.PN ---
PLAN IS FOR PATIENT TO TRANSFER TO [facility] TOMORROW (05/06/2022) DAUGHTER, PARKER ([phone]) AWARE OF PLAN. [facility] HAS A MALE DISCHARGE PLANNED FOR 1400 ON 05/06/22 AND WILL CONTACT CASE MANAGEMENT VIA [employer] FOR BEST TIME TO TRANSFER
[2022-05-05 13:50] VITALS: BP 109/73; PULSE 87; RESP 14; TEMP 36.6; O2SAT 95
[2022-05-05 18:13] VITALS: BP 100/65; PULSE 92; RESP 16; TEMP 36.6; O2SAT 94
[2022-05-05] MEDS: Melatonin 3 MG TABLET 6 MG PO (22:48)
[2022-05-05] MEDS: Carbidopa/Levodopa CR 25/100 TABLET.ER 1 TAB PO (22:48)
[2022-05-05 23:16] VITALS: BP 115/75; PULSE 71; RESP 13; O2SAT 96
[2022-05-06] MEDS: Carbidopa/Levodopa 25/100 TABLET 1.5 TAB PO ×5 (05:34→16:34)
[2022-05-06] MEDS: Omeprazole 20 MG CAPSULE.DR PO ×2 (05:34→16:34)
[2022-05-06] MEDS: Acetaminophen 325 MG TABLET 650 MG PO ×2 (05:34→14:38)
[2022-05-06 08:12] VITALS: BP 111/74; PULSE 89; RESP 18; TEMP 36.7; O2SAT 94
[2022-05-06] MEDS: Ibuprofen 600 MG TABLET PO ×2 (08:43→16:34)
[2022-05-06] MEDS: Escitalopram Oxalate 10 MG TABLET PO (08:43)
[2022-05-06] MEDS: Multivitamin TABLET 1 TAB PO (08:43)
--- NOTE | 2022-05-06 08:44 | PC.NURSE ---
Patient wiped down and bed change completed with Suad. Breakfast was provided. Patient repositioned, bed in lowest position, call reed within reach. Tv turned on.
--- NOTE | 2022-05-06 08:46 | PC.NURSE ---
pt received in bed alert and oreinted. Has eaten breakfast and been provided am care and bed change. Meds taken without difficulty.
--- NOTE | 2022-05-06 10:45 | MHC.CM.ED ---
[facility] called. Bed available after 2 pm. Requesting pt transport at 4pm. DaughterLakeisha called and updated ([phone]) with plan for discharge and transport. Transport booked via BLS with action. CM to follow for d/c needs.
[2022-05-06 12:52] VITALS: BP 149/79; PULSE 69; RESP 14; TEMP 36.5; O2SAT 96
[2022-05-06 14:42] VITALS: BP 149/79; PULSE 69; RESP 16; TEMP 36.8; O2SAT 98
--- NOTE | 2022-05-06 16:52 | PC.NURSE ---
pt transfer to skilled facility, pt has urinary retention so fonseca in place and maintained iv removed
--- NOTE | 2022-05-06 16:55 | PC.NURSE ---
ATTEMPTED TO ALL REPORT TO [facility] NO ANSWER GOT ANSWER THEN HUNG UP ON AFTER 3RD CALL NURSE TO NURSE ATTEMPTED
== END 2022-05-06 16:58 | disposition skilled nursing facility (03) ==
PROVIDERS: Physician Assistant Medical; Emergency Provider Emergency Medicine
DX: G20 Parkinson's disease (principal); F02.80 Dementia in other diseases classified elsewhere, unspecified severity, without behavioral disturbance, psychotic disturbance, mood disturbance, and anxiety; K59.00 Constipation, unspecified; R33.9 Retention of urine, unspecified; Z20.822 Contact with and (suspected) exposure to COVID-19
CPT/HCPCS: 36415; 51702; 70450; 71046; 71250; 74176; 80053; 82803; 83605; 83735; 83880; 84484; 85025; 87040; 87502; 87635; 93005; 96360; 96361; 97162; 97166; 99285

== ENCOUNTER → 2022-05-11 15:46 | Outpatient (BNVA) | payer MEDICARE, SELFPAY | PROVIDERS: PCP Internal Medicine; Visit Provider Psychiatry & Neurology Neurology | DX: G20 Parkinson's disease (principal); R44.3 Hallucinations, unspecified; F03.90 Unspecified dementia, unspecified severity, without behavioral disturbance, psychotic disturbance, mood disturbance, and anxiety; K59.00 Constipation, unspecified | CPT/HCPCS: Q3014 ==

== ENCOUNTER 2022-05-15 01:18 | Inpatient (IN) | payer MEDICARE, SELFPAY ==
[2022-05-15] VITALS (8 sets, daily range): BP systolic 86–140; BP diastolic 51–77; PULSE 77–101; RESP 16–20; TEMP 37.6–38.2; O2SAT 94–97; BMI 25.0
--- NOTE | ~2022-05-15 | XR_ITS ---
EXAMINATION: XR CHEST CLINICAL INFORMATION: Fever. COMPARISON: CT chest 05/02/2022. TECHNIQUE: Frontal view of the chest was obtained. FINDINGS: Normal appearance of the cardiomediastinal structures. No effusions or pneumothoraces. No focal pulmonary consolidation. Normal pattern of pulmonary vasculature. XR/XR chest 1V IMPRESSION: *No acute cardiopulmonary abnormalities.
--- NOTE | 2022-05-15 01:31 | ED_ITS ---
HPI - Male Genitourinary General Chief complaint: General Medical Stated complaint: fever/ urinary retention Time Seen by Provider: 05/15/22 01:20 Source: patient and old records reviewed Mode of arrival: EMS Limitations: no limitations History of Present Illness HPI Narrative: 71 yo male hx of parkinson's, dementia, COVID-19, hx of urinary retention intermittent straight catheterization sent in for complaint of facility ? retention and no bladder scan available. EMS notes BP was low 80s on arrival and patient felt hot to touch. The patient has no complaints and isn't sure why he is here and he is alert and oriented x 3. He reports he started to void on his own recently. MD Complaint: other (urinary retention) Onset (ago): unknown Duration: intermittent Severity: moderate Relieving factors: urination Exacerbating factors: none Context: other (seen here recently for COVID, constipation, retention DC to SNF 05/03) Associated symptoms: Reports other (EMS noted patient BP was low and hot touch) Related Data Home Medications Medication Instructions Recorded Confirmed acetaminophen 500 mg tablet 1,000 mg PO TID@0600,1200,1800 05/03/22 05/11/22 citalopram 20 mg tablet 20 mg PO BEDTIME 05/03/22 05/11/22 ibuprofen 600 mg tablet 600 mg PO BID@0900,1500 05/03/22 05/11/22 melatonin 5 mg tablet 5 mg PO BEDTIME 05/03/22 05/11/22 multivitamin 1 tab PO DAILY 05/03/22 05/11/22 omega-3 fatty acids 1 cap PO DAILY 05/03/22 05/11/22 pantoprazole 40 mg tablet,delayed 1 tab PO BID 05/03/22 05/11/22 release carbidopa 25 mg-levodopa 100 mg 1.5 tab PO .5 times a day 05/11/22 05/11/22 tablet memantine 14 mg capsule 14 mg PO DAILY 05/11/22 05/11/22 sprinkle,extended release 24hr Previous Rx's Medication Instructions Recorded carbidopa ER 25 mg-levodopa 100 mg 1 tab PO BEDTIME #90 tabs 11/26/21 tablet,extended release Allergies Allergy/AdvReac Type Severity Reaction Status Date / Time No Known Allergies Allergy Verified 05/11/22 15:47 Review of Systems Review of Systems: Constitutional : No Weight loss, No Fever, No Chills, No Fatigue, No Malaise ENT/Mouth : No sore throat, No Rhinorrhea Eyes: No Eye Pain, No Swelling, No Redness Cardiovascular : No Chest Pain, No SOB, No Dyspnea on Exertion, No Orthopnea, No Edema, No Palpitations Respiratory : No Cough, No Sputum, No Wheezing Gastrointestinal : No Nausea, No Vomiting, No Diarrhea, No Constipation, No abdominal Pain, No Hematochezia, No Melena Genitourinary : No Dysuria, No Urinary Frequency, No Hematuria, pos retention Musculoskeletal : No joint pain, No Myalgias, No Joint Swelling Skin : No Skin Lesions, No rash Neuro : No Weakness, No Numbness, No Dizziness, No Headache Psych : No Anxiety/Panic, No Depression Heme/Lymph: No Bruising, No Bleeding,No Lymphadenopathy Endocrine : No Polyuria, No Polydipsia All other systems reviewed and are negative COUNT INCLUDES THE [facility] Past Medical History Attestation statement: The following information was validated with the patient. Medical History Constipation COVID-19 Parkinson's disease Surgical History Hx of knee surgery Family History Family History Father Brain tumor Social History Social History Alcohol intake: never Patient Tobacco Use Status: Never used Tobacco Advance Directives: Yes Advance Directives on File: Yes Advance Directives Date on File: 05/03/22 Physical Exam Vital Signs: Vital Signs: Last Vital Signs Temp 99.9 F 05/15/22 01:29 Pulse 95 05/15/22 01:29 Resp 16 05/15/22 01:29 BP 99/57 L 05/15/22 01:29 Pulse Ox 96 05/15/22 01:29 O2 Del Method 05/15/22 01:29 BMI result Body Mass Index 25.0 Appearance: Alert. Oriented X3. No acute distress. Eyes: Pupils equal, round and reactive to light. ENT: Pharynx normal. Neck: Normal inspection. Neck supple. CVS: Normal heart rate and rhythm. Pulses normal. Respiratory: No respiratory distress. Breath sounds normal. Abdomen: Soft and fullness along suprapubic area, no CVA ttp Skin: Skin warm and dry. Normal skin color. Normal skin turgor. Extremities: No lower extremity edema. No calf ttp Neuro: Oriented X 3. No motor deficit. No sensory deficit. Course Course Course Narrative: 2500cc bolus ordered BP improved will admit for further workup procalcitonin > 1 - hospitalist notified 310am MDM - Male Genitourinary MDM Narrative Medical decision making narrative: 71 yo male with hx of parkinson's disease here with c/o retention but then EMS found patient to have low BP and hot to touch he is 99.9 rectally at this time will obtain labs, UA, CXR, cultures, lactic acid - possible low BP due to parkinson's vs infection will start on IVF and empiric rocephin given recent straight catheterizations at facility. Lab Data Result diagrams: 05/15/22 01:48 05/15/22 01:48 Labs: Lab Results 05/15/22 05/15/22 05/15/22 Range/Units 01:48 01:48 01:48 WBC 14.7 H (4.8-10.8) X10*3/uL RBC 3.57 L (4.60-5.80) X10*6/uL Hgb 10.6 L (14.0-18.0) g/dl Hct 32.3 L (42.0-52.0) % MCV 90.5 (80.0-98.0) fL MCH 29.7 (27.0-33.0) pg MCHC 32.8 (31.0-36.0) g/dl RDW 14.7 (11.0-16.0) % Plt Count 188 D (160-400) X10*3/uL MPV 9.1 L (9.4-12.4) fL Immature Gran % (Auto) 0.6 H (0.0-0.4) % Neut % (Auto) 88.1 H (45-73) % Lymph % (Auto) 4.5 L (20-40) % Bennett % (Auto) 6.5 (2-11) % Eos % (Auto) 0.1 (0-4) % Baso % (Auto) 0.2 (0-2) % Lymph # (Auto) 0.7 L (1.2-4.9) X10*3/uL Bennett # (Auto) 1.0 (0.1-1.2) X10*3/uL Eos # (Auto) 0.0 (0.0-0.4) X10*3/uL Baso # (Auto) 0.0 (0.0-0.2) X10*3/uL Abs Immat Gran (auto) 0.09 H (0.00-0.03) X10*3/uL Absolute Neuts (auto) 12.9 H (2.0-8.3) x10*3/uL Absolute Nucleated RBC 0.000 (0.0-0.012) X10*3/uL Nucleated RBC % (auto) 0.0 (0.0-0.2) /100WBC PT (9.9-13.0) SEC INR (0.9-1.1) Sodium 138 (135-145) mmol/L Potassium 4.2 (3.3-5.1) mmol/L Chloride 108 (96-108) mmol/L Carbon Dioxide 23 (22-29) mmol/L Anion Gap 11 L (12-20) BUN 29 H (9-16) mg/dL Creatinine 0.92 (0.5-1.4) mg/dL Estim Creat Clear Calc 71.2 Estimated GFR > 60 Random Glucose 152 H D (60-115) mg/dL Lactic Acid (0.5-2.0) mmol/L Calcium 9.1 D (8.4-10.2) mg/dL Magnesium 1.8 (1.6-2.6) mg/dL Total Bilirubin 1.1 H (0.0-1.0) mg/dL Direct Bilirubin 0.5 (0.0-0.5) mg/dL AST 11 (5-37) U/L ALT < 6 (0-40) U/L Alkaline Phosphatase 92 (39-117) U/L Total Protein 6.3 L (6.5-8.0) g/dL Albumin 3.9 (3.5-5.0) g/dL Lipase 22 (8-78) U/L Procalcitonin ng/mL Urine Color Urine Appearance Urine pH (5.0-8.0) Ur Specific [place] (1.005-1.025) Urine Protein (NEG-TRACE) MG/DL Urine Glucose (UA) (NEG) MG/DL Urine Ketones (NEG) MG/DL Urine Blood (NEG) Urine Nitrite (NEG) Ur Leukocyte Esterase (NEG) Urine RBC (0) /HPF Urine WBC (0-4) /HPF Ur Squamous Epith Cells /LPF Urine Bacteria /LPF COVID-19 (JUAN) Negative (Negative) COVID-19 Clin Com See Note 05/15/22 05/15/22 05/15/22 Range/Units 01:48 01:48 01:48 WBC (4.8-10.8) X10*3/uL RBC (4.60-5.80) X10*6/uL Hgb (14.0-18.0) g/dl Hct (42.0-52.0) % MCV (80.0-98.0) fL MCH (27.0-33.0) pg MCHC (31.0-36.0) g/dl RDW (11.0-16.0) % Plt Count (160-400) X10*3/uL MPV (9.4-12.4) fL Immature Gran % (Auto) (0.0-0.4) % Neut % (Auto) (45-73) % Lymph % (Auto) (20-40) % Bennett % (Auto) (2-11) % Eos % (Auto) (0-4) % Baso % (Auto) (0-2) % Lymph # (Auto) (1.2-4.9) X10*3/uL Bennett # (Auto) (0.1-1.2) X10*3/uL Eos # (Auto) (0.0-0.4) X10*3/uL Baso # (Auto) (0.0-0.2) X10*3/uL Abs Immat Gran (auto) (0.00-0.03) X10*3/uL Absolute Neuts (auto) (2.0-8.3) x10*3/uL Absolute Nucleated RBC (0.0-0.012) X10*3/uL Nucleated RBC % (auto) (0.0-0.2) /100WBC PT 15.2 H (9.9-13.0) SEC INR 1.3 H (0.9-1.1) Sodium (135-145) mmol/L Potassium (3.3-5.1) mmol/L Chloride (96-108) mmol/L Carbon Dioxide (22-29) mmol/L Anion Gap (12-20) BUN (9-16) mg/dL Creatinine (0.5-1.4) mg/dL Estim Creat Clear Calc Estimated GFR Random Glucose (60-115) mg/dL Lactic Acid 1.4 (0.5-2.0) mmol/L Calcium (8.4-10.2) mg/dL Magnesium (1.6-2.6) mg/dL Total Bilirubin (0.0-1.0) mg/dL Direct Bilirubin (0.0-0.5) mg/dL AST (5-37) U/L ALT (0-40) U/L Alkaline Phosphatase (39-117) U/L Total Protein (6.5-8.0) g/dL Albumin (3.5-5.0) g/dL Lipase (8-78) U/L Procalcitonin 1.48 ng/mL Urine Color Urine Appearance Urine pH (5.0-8.0) Ur Specific [place] [address] [place] (1.005-1.025) Urine Protein (NEG-TRACE) MG/DL Urine Glucose (UA) (NEG) MG/DL Urine Ketones (NEG) MG/DL Urine Blood (NEG) Urine Nitrite (NEG) Ur Leukocyte Esterase (NEG) Urine RBC (0) /HPF Urine WBC (0-4) /HPF Ur Squamous Epith Cells /LPF Urine Bacteria /LPF COVID-19 (JUAN) (Negative) COVID-19 Clin Com 05/15/22 Range/Units 01:48 WBC (4.8-10.8) X10*3/uL RBC (4.60-5.80) X10*6/uL Hgb (14.0-18.0) g/dl Hct (42.0-52.0) % MCV (80.0-98.0) fL MCH (27.0-33.0) pg MCHC (31.0-36.0) g/dl RDW (11.0-16.0) % Plt Count (160-400) X10*3/uL MPV (9.4-12.4) fL Immature Gran % (Auto) (0.0-0.4) % Neut % (Auto) (45-73) % Lymph % (Auto) (20-40) % Bennett % (Auto) (2-11) % Eos % (Auto) (0-4) % Baso % (Auto) (0-2) % Lymph # (Auto) (1.2-4.9) X10*3/uL Bennett # (Auto) (0.1-1.2) X10*3/uL Eos # (Auto) (0.0-0.4) X10*3/uL Baso # (Auto) (0.0-0.2) X10*3/uL Abs Immat Gran (auto) (0.00-0.03) X10*3/uL Absolute Neuts (auto) (2.0-8.3) x10*3/uL Absolute Nucleated RBC (0.0-0.012) X10*3/uL Nucleated RBC % (auto) (0.0-0.2) /100WBC PT (9.9-13.0) SEC INR (0.9-1.1) Sodium (135-145) mmol/L Potassium (3.3-5.1) mmol/L Chloride (96-108) mmol/L Carbon Dioxide (22-29) mmol/L Anion Gap (12-20) BUN (9-16) mg/dL Creatinine (0.5-1.4) mg/dL Estim Creat Clear Calc Estimated GFR Random Glucose (60-115) mg/dL Lactic Acid (0.5-2.0) mmol/L Calcium (8.4-10.2) mg/dL Magnesium (1.6-2.6) mg/dL Total Bilirubin (0.0-1.0) mg/dL Direct Bilirubin (0.0-0.5) mg/dL AST (5-37) U/L ALT (0-40) U/L Alkaline Phosphatase (39-117) U/L Total Protein (6.5-8.0) g/dL Albumin (3.5-5.0) g/dL Lipase (8-78) U/L Procalcitonin ng/mL Urine Color YELLOW Urine Appearance HAZY Urine pH 5.5 (5.0-8.0) Ur Specific [place] [address] [place] 1.020 (1.005-1.025) Urine Protein TRACE (NEG-TRACE) MG/DL Urine Glucose (UA) NEG (NEG) MG/DL Urine Ketones NEG (NEG) MG/DL Urine Blood 3+ H (NEG) Urine Nitrite POS H (NEG) Ur Leukocyte Esterase 1+ H (NEG) Urine RBC 10-14 H (0) /HPF Urine WBC 30-49 H (0-4) /HPF Ur Squamous Epith Cells NONE /LPF Urine Bacteria 3+ /LPF COVID-19 (JUAN) (Negative) COVID-19 Clin Com Discharge Plan Discharge Clinical Impression: Acute UTI Leukocytosis Qualifiers: Leukocytosis type: unspecified Qualified Code(s): D72.829 - Elevated white blood cell count, unspecified Patient Disposition: Admitted As Inpatient
[2022-05-15 01:58] LABS: MANUAL DIFF FLAG NO
[2022-05-15 01:59] LABS: Basophils Percent Auto 0.2 % (0-2); Eosinophils Percent Auto 0.1 % (0-4); Hematocrit 32.3 % (42.0-52.0); Hemoglobin 10.6 g/dl (14.0-18.0); Imm Gran Abs Auto 0.09 X10*3/uL (0.00-0.03); Imm Gran Pct Auto 0.6 % (0.0-0.4); Lymphocytes Absolute Auto 0.7 X10*3/uL (1.2-4.9); Lymphocytes Percent Auto 4.5 % (20-40); Mean Corpuscular HGB Conc 32.8 g/dl (31.0-36.0); Mean Corpuscular Hemoglobin 29.7 pg (27.0-33.0); Mean Corpuscular Volume 90.5 fL (80.0-98.0); Mean Platelet Volume 9.1 fL (9.4-12.4); Monocytes Percent Auto 6.5 % (2-11); Neutrophils Absolute Auto 12.9 x10*3/uL (2.0-8.3); Neutrophils Percent Auto 88.1 % (45-73); Platelet Count 188 X10*3/uL (160-400); Red Blood Count 3.57 X10*6/uL (4.60-5.80); Red Cell Distribution Width 14.7 % (11.0-16.0); White Blood Count 14.7 X10*3/uL (4.8-10.8)
[2022-05-15 02:04] LABS: INTERNATIONAL NORM RATIO 1.3 (0.9-1.1); Prothrombin Time 15.2 SEC (9.9-13.0)
[2022-05-15] MEDS: 0.9 % Sodium Chloride 1,000 ML 999 ML IVCONT (02:05)
[2022-05-15 02:14] LABS: Appearance Urine HAZY; Color Urine YELLOW; Glucose Urine UA NEG (NEG); Leukocyte Esterase Urine 1+ (NEG); Nitrite Urine POS (NEG); PH 5.5 (5.0-8.0); UACC Culture Trigger YES; Urine Blood 3+ (NEG); Urine Ketones NEG (NEG); Urine Protein TRACE MG/DL (NEG-TRACE)
[2022-05-15 02:15] LABS: Lactic Acid 1.4 mmol/L (0.5-2.0)
[2022-05-15] MEDS: Acetaminophen 325 MG TABLET 650 MG PO (02:16)
[2022-05-15] MEDS: cefTRIAXone sodium 1 GM in 0.9 % Sodium Chloride 50 ML IV (02:17)
[2022-05-15] MEDS: 0.9 % Sodium Chloride 1,000 ML 999 ML IV (02:18)
[2022-05-15 02:19] LABS: Alanine Aminotransferase < 6 U/L (0-40); Albumin Level 3.9 g/dL (3.5-5.0); Alkaline Phosphatase 92 U/L (39-117); Anion Gap 11 (12-20); Aspartate Amino Transferase 11 U/L (5-37); Bilirubin Direct 0.5 mg/dL (0.0-0.5); Bilirubin Total 1.1 mg/dL (0.0-1.0); Blood Urea Nitrogen 29 mg/dL (9-16); COVID-19 Test Negative (Negative); Calcium 9.1 mg/dL (8.4-10.2); Carbon Dioxide 23 mmol/L (22-29); Chloride 108 mmol/L (96-108); Creatinine Clr Calc Pharmacy 71.2; Estimated Glomerular Filt Rate > 60; Glucose Random 152 mg/dL (60-115); Lipase 22 U/L (8-78); Magnesium 1.8 mg/dL (1.6-2.6); Potassium 4.2 mmol/L (3.3-5.1); Sodium 138 mmol/L (135-145); Total Protein 6.3 g/dL (6.5-8.0)
[2022-05-15 02:21] LABS: Bacteria Urine 3+ /LPF; WBC Urine 30-49 /HPF (0-4)
[2022-05-15 03:06] LABS: Procalcitonin 1.48 ng/mL
--- NOTE | 2022-05-15 03:13 | PC.NURSE ---
RN to bedside per MD request to obtain new vitals as only BP on file is the pt's original BP upon arrival at 0126 which was listed as 99/57. Upon arrival to bedside, EDT present speaking with daughter at bedside and setting up cycling BPs. Pt's daughter is reporting new pain as she reports the pt is now moaning, grimacing and shaking which is not his baseline. RN could see 2 Liters of NS hung along with ceftriaxone and noted 1 Liter to not be flowing/infusing despite the roller clamp being upon. RN troubleshooted left forearm IV which flushed with some difficulty but appears to be related to the way the IV line was secured. This RN resecured IV line with easy flushing noted and once Liter of NS reconnect it flowed without issue and well. 2Liters up and infusing but no where near complete. RN and EDT checked a rectal temp as the pt was noted to feel warm to touch and to ensure the pt's newly reported shaking/tremors were not related to fever. Current RN mitchell to bedside to insert fonseca cath per order. MD dang to be made aware, repeat BP was 115/66 and rectal temp noted to be 98.7.
[2022-05-15] MEDS: fentaNYL citrate/PF 100 MCG/2 ML VIAL 25 MCG IVPUSH (04:50)
[2022-05-15] MEDS: 0.9 % Sodium Chloride 500 ML IV (04:51)
--- NOTE | 2022-05-15 05:35 | PC.NURSE ---
RN to bedside to answer call reed. Pt's daughter reports that she believes the pt to be in increased pain. Pt noted to be resting in stretcher with eyes closed, bilateral hand tremor with intermittent bilateral leg jerking. Daughter reports pt reports pain (moaning and stating that hurts when attempting to reposition) despite when woke up by this RN he reports no pain. The daughter is requesting to see if pt can have his 0600 Carbidopa-Levodopa dose early as she believes the pt's tremors are adding to his pain, well if he has bone on bone [right hip] then I'm thinking his body trembling makes the pain worse . RN asked the daughter what her wishes/goals are for her father as the pt continues to deny pain and the daughter replied comfort care . RN provided education regarding Comfort care and explained the pt does not appear to be at that point, daughter verbalized understanding and reports that she just wants him to be comfortable and not so tremulous. RN to make MD dang aware to determine ability for new orders.
[2022-05-15] MEDS: Carbidopa/Levodopa 25/100 TABLET 1 TAB PO ×3 (06:02→15:36)
--- NOTE | 2022-05-15 07:44 | PM.IMHP ---
History of Present Illness Date of Service: 05/15/22 Chief Complaint: Urinary retention 71 yo male hx of parkinson's, dementia, osteoarthritis of the right hip (due for surgery June 02). He was admitted to [facility] at the end of February with aspiration pneumonia and found to have esophageal stricture and s/p dilatation and has been tolerating regular diet. He was subsequently send to [facility] in [facility] and later transfereed to [facility] assisted living and later transition to [facility] rehab where he coontracted covid 19 and was at [facility] from 05/02 to and was then discharged back to [facility] where he was noted to have urinary retention and there were not able to insert Fonseca so send to the ED and found to have UTI and was hypotensive by EMS eval and once in the ED. A fonseca inserted and given Ceftriaxone. Her daughter at the bedside was very helpful in providing history Review of Systems Review of Systems: Gen: no fever Resp: no sob, no cough CV: no chest, no PATEL, no leg edema GI: No n/v, no abd pain : Urinary retention Neuro: No confusion Right hip pain Yes all other systems are reviewed and are negative [facility] Medical History (Updated 05/15/22 @ 07:46 by Cheo Alcaraz MD) Constipation COVID-19 Dementia Parkinson's disease Family History Father Brain tumor Surgical History Hx of knee surgery Social History Alcohol intake: never Patient Tobacco Use Status: Never used Tobacco Use of substances other than those prescribed or required for medical reasons: No Advance Directives: Yes Advance Directives on File: Yes Advance Directives Date on File: 05/03/22 Meds Allergies Allergy/AdvReac Type Severity Reaction Status Date / Time No Known Allergies Allergy Verified 05/11/22 15:47 Home Medications Medication Instructions Recorded Confirmed Last Taken Type acetaminophen 500 mg tablet 1,000 mg PO TID@0600,1200,1800 05/03/22 05/15/22 Unknown History citalopram 20 mg tablet 20 mg PO BEDTIME 05/03/22 05/15/22 Unknown History ibuprofen 600 mg tablet 600 mg PO BID@0900,1500 05/03/22 05/15/22 Unknown History melatonin 5 mg tablet 5 mg PO BEDTIME 05/03/22 05/15/22 Unknown History multivitamin 1 tab PO DAILY 05/03/22 05/15/22 Unknown History omega-3 fatty acids 1 cap PO DAILY 05/03/22 05/15/22 Unknown History pantoprazole 40 mg tablet,delayed 1 tab PO BID 05/03/22 05/15/22 Unknown History release carbidopa 25 mg-levodopa 100 mg 1 tab PO DAILY@0600,0900,1200 05/11/22 05/15/22 Unknown History tablet memantine 14 mg capsule 14 mg PO DAILY 05/11/22 05/15/22 Unknown History sprinkle,extended release 24hr carbidopa 25 mg-levodopa 100 mg 1 tab PO DAILY@1500,1800 05/15/22 05/15/22 Unknown History tablet tamsulosin 0.4 mg capsule 0.4 mg PO BEDTIME 05/15/22 05/15/22 Unknown History tramadol 50 mg tablet 50 mg PO Q8H PRN Pain 05/15/22 05/15/22 Unknown History Physical Exam Vital Signs and Narrative: Vital Signs: Last Vital Signs Temp 99.9 F 05/15/22 01:29 Pulse 84 05/15/22 06:01 Resp 20 05/15/22 06:01 BP 127/72 05/15/22 06:01 Pulse Ox 97 05/15/22 06:00 O2 Del Method 05/15/22 06:00 BMI result Body Mass Index 25.0 Const: Other: Constitutional: Alert, in no distress, overweight. Mental Status: Oriented to person, place and time. Eyes: Pupils are equal, round and reactive to light. Ear, Nose and Throat: Oropharynx clear, mucous membranes moist. Respiratory: Clear to auscultation. No wheezing, rales or rhonchi. Cardiovascular: S1 S2 regular. No murmurs, rubs or gallops. Gastrointestinal: Abdomen soft, non-tender, non-distended. Normal bowel sounds.? Neurologic: Cranial nerves II-XII grossly intact. No focal neurological deficits. Moves all extremities spontaneously.? mSK: Right hip pain with movement. Skin: No rashes or lesions.? Musculoskeletal: No cyanosis or clubbing. Psychiatric: Normal mood and affect? Results Labs CBC and Chem 7: 05/16/22 08:24 05/15/22 01:48 Labs: Laboratory Results - last 24 hr 05/15/22 05/15/22 05/15/22 01:48 01:48 01:48 MCV 90.5 MCH 29.7 MCHC 32.8 RDW 14.7 Plt Count 188 D MPV 9.1 L Immature Gran % (Auto) 0.6 H Neut % (Auto) 88.1 H Lymph % (Auto) 4.5 L [place] % (Auto) 6.5 Eos % (Auto) 0.1 Baso % (Auto) 0.2 Lymph # (Auto) 0.7 L [place] # (Auto) 1.0 Eos # (Auto) 0.0 Baso # (Auto) 0.0 Abs Immat Gran (auto) 0.09 H Absolute Neuts (auto) 12.9 H Absolute Nucleated RBC 0.000 Nucleated RBC % (auto) 0.0 PT INR Anion Gap 11 L Estim Creat Clear Calc 71.2 Estimated GFR > 60 Random Glucose 152 H D Lactic Acid Calcium 9.1 D Magnesium 1.8 Total Bilirubin 1.1 H Direct Bilirubin 0.5 AST 11 ALT < 6 Alkaline Phosphatase 92 Total Protein 6.3 L Albumin 3.9 Lipase 22 Procalcitonin Urine Color Urine Appearance Urine pH Ur Specific [place] Urine Protein Urine Glucose (UA) Urine Ketones Urine Blood Urine Nitrite Ur Leukocyte Esterase Urine RBC Urine WBC Ur Squamous Epith Cells Urine Bacteria COVID-19 (JUAN) Negative COVID-19 Clin Com See Note 05/15/22 05/15/22 05/15/22 01:48 01:48 01:48 MCV MCH MCHC RDW Plt Count MPV Immature Gran % (Auto) Neut % (Auto) Lymph % (Auto) [place] % (Auto) Eos % (Auto) Baso % (Auto) Lymph # (Auto) [place] # (Auto) Eos # (Auto) Baso # (Auto) Abs Immat Gran (auto) Absolute Neuts (auto) Absolute Nucleated RBC Nucleated RBC % (auto) PT 15.2 H INR 1.3 H Anion Gap Estim Creat Clear Calc Estimated GFR Random Glucose Lactic Acid 1.4 Calcium Magnesium Total Bilirubin Direct Bilirubin AST ALT Alkaline Phosphatase Total Protein Albumin Lipase Procalcitonin 1.48 Urine Color Urine Appearance Urine pH Ur Specific [place] Urine Protein Urine Glucose (UA) Urine Ketones Urine Blood Urine Nitrite Ur Leukocyte Esterase Urine RBC Urine WBC Ur Squamous Epith Cells Urine Bacteria COVID-19 (JUAN) COVID-19 wooju 05/15/22 01:48 MCV MCH MCHC RDW Plt Count MPV Immature Gran % (Auto) Neut % (Auto) Lymph % (Auto) [place] % (Auto) Eos % (Auto) Baso % (Auto) Lymph # (Auto) [place] # (Auto) Eos # (Auto) Baso # (Auto) Abs Immat Gran (auto) Absolute Neuts (auto) Absolute Nucleated RBC Nucleated RBC % (auto) PT INR Anion Gap Estim Creat Clear Calc Estimated GFR Random Glucose Lactic Acid Calcium Magnesium Total Bilirubin Direct Bilirubin AST ALT Alkaline Phosphatase Total Protein Albumin Lipase Procalcitonin Urine Color YELLOW Urine Appearance HAZY Urine pH 5.5 Ur Specific [place] 1.020 Urine Protein TRACE Urine Glucose (UA) NEG Urine Ketones NEG Urine Blood 3+ H Urine Nitrite POS H Ur Leukocyte Esterase 1+ H Urine RBC 10-14 H Urine WBC 30-49 H Ur Squamous Epith Cells NONE Urine Bacteria 3+ COVID-19 (JUAN) COVID-19 wooju Imaging Radiologist's Impressions: Impressions Chest X-Ray 05/15/22 02:10 IMPRESSION: *No acute cardiopulmonary abnormalities. Assessment and Plan (1) Acute UTI: Status: Acute (2) Leukocytosis: Qualifiers: Leukocytosis type: unspecified Qualified Code(s): D72.829 - Elevated white blood cell count, unspecified Status: Acute (3) Acute urinary retention: Status: Acute Plan 71-year-old male with Parkinson's disease, urinary retention here with sepsis due to UTI. #Sepsis due to UTI #UTI -ceftriaxone and follow culture. # retention--a Fonseca catheter has been inserted, he may need a urological evaluation, continue Flomax #Parkinson's--continue home med. # dementia--continue memantine # severe osteoarthritis of the right hip--morphine p.r.n. for pain. Heparin for DVT prophylaxis Admission to [facility] at least 2 midnights, for treatment of sepsis with intravenous IV antibiotics Plan of care discussed with the patient and daughter at the bedside Quality Stroke Does the patient have a stroke diagnosis?: No VTE Prior VTE?: No VTE Risk Level:: Medical - moderate - high VTE Device Contraindication: Treatment Not Indicated VTE Drug Contraindication: N/A - Med Ordered
--- NOTE | 2022-05-15 08:49 | PHA.MEDREC ---
Pharmacy Consult ? Medication Reconciliation Pharmacy has completed the medication reconciliation. Reviewed med rec done by Cee Izquierdo
--- NOTE | 2022-05-15 11:32 | PC.NURSE ---
took over on the pt' care from a previous nurse just medicating the pt with his 0900 medications because according the previous nurse the medications was not verified by the pharmacy pt alert and oriented, skin warm to touch and slightly clammy,, respirations even and unlabored, pt is presenting with some shakes do to his tone and not getting his medications on time, pt also reports having pain in the right pelvic/hip at 5/10. was medicated with the tylenol and morphine but the daughter wanted to hold off on the Motrin because the pt has not had any food, pt given food, fonseca in place and draining well about 300ml of yellow urine, vs stable
[2022-05-15] MEDS: Heparin Sodium,Porcine 5,000 UNIT/ML VIAL 5000 UNIT SUBCUT ×2 (11:42→20:43)
[2022-05-15] MEDS: Multivitamin TABLET 1 TAB PO (11:44)
[2022-05-15] MEDS: Dextrose 5 % and 0.45 % NaCl 1,000 ML 100 ML IVCONT ×2 (11:45→23:49)
[2022-05-15] MEDS: Morphine Sulfate 4 MG/ML CARTRIDGE 2 MG IVPUSH (11:59)
[2022-05-15] MEDS: Acetaminophen 325 MG TABLET 975 MG PO ×2 (12:00→18:26)
[2022-05-15] MEDS: Ibuprofen 600 MG TABLET PO ×2 (13:21→18:20)
--- NOTE | 2022-05-15 13:37 | PC.NURSE ---
pt is moving around in bed, daughter states that the morphine worked for a little while that the pt got sleep but it seems that the pain is starting to come back, pt medicated with the motrin pt reports pain at 6/10 at this time
[2022-05-15] MEDS: HYDROmorphone HCl 0.5 MG/0.5 ML SYRINGE IVPUSH (15:35)
[2022-05-15] MEDS: 0.9 % Sodium Chloride Flush 3 ML SYRINGE IVFLUSH (15:42)
--- NOTE | 2022-05-15 15:45 | PC.NURSE ---
daughter reports that the pt actually taked 1 1/2 tabs of the carbidopa/levodopoa x5 a day, called pharmacy to let then know.
--- NOTE | 2022-05-15 17:33 | PC.NURSE ---
pt is currently resting comfortably in the stretcher, respirations even and unlabored.
[2022-05-15] MEDS: Carbidopa/Levodopa 25/100 TABLET 1.5 TAB PO (18:45)
[2022-05-15] MEDS: Tamsulosin HCL 0.4 MG CAPSULE PO (20:41)
[2022-05-15] MEDS: Omeprazole 20 MG CAPSULE.DR PO (20:41)
[2022-05-15] MEDS: Escitalopram Oxalate 10 MG TABLET PO (20:42)
[2022-05-15] MEDS: Melatonin 3 MG TABLET 6 MG PO (20:42)
--- NOTE | 2022-05-15 20:53 | PC.NURSE ---
Waiting for meaghan from pharmacy.
[2022-05-15] MEDS: Carbidopa/Levodopa CR 25/100 TABLET.ER 1 TAB PO (22:04)
[2022-05-16] VITALS (7 sets, daily range): BP systolic 88–137; BP diastolic 51–80; PULSE 59–88; RESP 14–19; TEMP 36.3–36.9; O2SAT 95–98
[2022-05-16] MEDS: 0.9 % Sodium Chloride Flush 3 ML SYRINGE IVFLUSH (01:38)
[2022-05-16] MEDS: Acetaminophen 325 MG TABLET 975 MG PO ×3 (06:30→17:22)
[2022-05-16] MEDS: Carbidopa/Levodopa 25/100 TABLET 1.5 TAB PO ×5 (06:36→17:23)
--- NOTE | 2022-05-16 08:21 | PC.NURSE ---
THIS HEEL BRUSHER ASSUMED CARE OF THIS PT AT 0700. BED 378 ASSIGNED. THIS HEEL BRUSHER MADE 2 ATTEMPTS TO GIVE NURSE TO NURSE REPORT. AWAITING NURSE TO CALL BACK.
--- NOTE | 2022-05-16 08:27 | PC.NURSE ---
REPORT GIVEN TO RECEIVING NURSE NILE DUNAWAY. PT AND HIS DAUGHTER AWARE OF PLAN OF CARE.
[2022-05-16 08:42] LABS: Basophils Percent Auto 0.2 % (0-2); Eosinophils Absolute Auto 0.1 X10*3/uL (0.0-0.4); Eosinophils Percent Auto 0.7 % (0-4); Hematocrit 30.6 % (42.0-52.0); Hemoglobin 9.9 g/dl (14.0-18.0); Imm Gran Abs Auto 0.13 X10*3/uL (0.00-0.03); Imm Gran Pct Auto 1.1 % (0.0-0.4); Lymphocytes Absolute Auto 0.4 X10*3/uL (1.2-4.9); Lymphocytes Percent Auto 3.1 % (20-40); MANUAL DIFF FLAG SCAN; Mean Corpuscular HGB Conc 32.4 g/dl (31.0-36.0); Mean Corpuscular Hemoglobin 29.9 pg (27.0-33.0); Mean Corpuscular Volume 92.4 fL (80.0-98.0); Mean Platelet Volume 9.8 fL (9.4-12.4); Monocytes Absolute Auto 0.5 X10*3/uL (0.1-1.2); Monocytes Percent Auto 4.3 % (2-11); Neutrophils Absolute Auto 10.4 x10*3/uL (2.0-8.3); Neutrophils Percent Auto 90.6 % (45-73); Platelet Count 149 X10*3/uL (160-400); Red Blood Count 3.31 X10*6/uL (4.60-5.80); SCAN SMEAR FLAG 1; White Blood Count 11.5 X10*3/uL (4.8-10.8)
[2022-05-16 09:27] LABS: SLIDE REVIEW VERIFIED
[2022-05-16] MEDS: Omeprazole 20 MG CAPSULE.DR PO ×2 (10:28→21:19)
[2022-05-16] MEDS: Heparin Sodium,Porcine 5,000 UNIT/ML VIAL 5000 UNIT SUBCUT ×2 (10:28→21:19)
[2022-05-16] MEDS: Multivitamin TABLET 1 TAB PO (10:28)
[2022-05-16] MEDS: Ibuprofen 600 MG TABLET PO ×2 (10:28→14:38)
--- NOTE | 2022-05-16 10:35 | P.PNIM_ITS ---
Subjective Subjective Date of Service: 05/16/22 Interval History: f/u on urinary retention, UTI Interval history: much better than yesterday, pain is better Review of Systems no fever right hip pain Physical Exam Vital Signs: Vital Signs: Last Vital Signs Temp 97.7 F 05/16/22 09:22 Pulse 75 05/16/22 09:22 Resp 18 05/16/22 09:22 BP 93/53 L 05/16/22 09:22 Pulse Ox 98 05/16/22 09:22 O2 Del Method 05/16/22 09:22 BMI result Body Mass Index 25.0 Const: Other: General: AO X 2, no acute distress Resp: CTA bilateral CVS: S1,S2,RRR GI: +BS, NT, no distention Skin: No rash Neuro: motor grossly intact Psych: appropriate affect Objective Data Active Medications Acetaminophen (Acetaminophen 325 Mg Tablet) 650 mg PO Q6H PRN PRN Reason: Pain, Mild (Pain Scale 1-3) Acetaminophen (Acetaminophen 325 Mg Tablet) 975 mg PO TID@0600,1200,1800 [facility] Last Admin: 05/16/22 06:30 Dose: 975 mg Documented By: VÍCTOR Carbidopa/Levodopa (Carbidopa/Levodopa Cr 25/100 Tablet.Er) 1 tab PO BEDTIME [facility] Last Admin: 05/15/22 22:04 Dose: 1 tab Documented By: BELEN Carbidopa/Levodopa (Carbidopa/Levodopa 25/100 Tablet) 1.5 tab PO DAILY@0600,0900,1200,1500,1800 [facility] Last Admin: 05/16/22 10:28 Dose: 1.5 tab Documented By: CRISTIANE Escitalopram Oxalate (Escitalopram Oxalate 10 Mg Tablet) 10 mg PO BEDTIME [facility] Last Admin: 05/15/22 20:42 Dose: 10 mg Documented By: BELEN Heparin Sodium (Porcine) (Heparin Sodium,Porcine 5,000 Unit/Ml Vial) 5,000 unit SUBCUT Q12H [facility] Last Admin: 05/16/22 10:28 Dose: 5,000 unit Documented By: CRISTIANE Hydromorphone HCl (Hydromorphone Hcl 0.5 Mg/0.5 Ml Syringe) 0.5 mg IVPUSH Q4H PRN; Protocol PRN Reason: Pain, Severe (Pain Scale 7-10) Last Admin: 05/15/22 15:35 Dose: 0.5 mg Documented By: ODALIS Dextrose/Sodium Chloride (D51/2ns) 1,000 mls @ 100 mls/hr IVCONT .Q10H [facility] Last Admin: 05/16/22 09:27 Dose: Not Given Documented By: DARWINEMA Non-Admin Reason: IV Running Ceftriaxone Sodium 1 gm/ (Sodium Chloride) 50 mls @ 100 mls/hr IV Q24H [facility] Ibuprofen (Ibuprofen 600 Mg Tablet) 600 mg PO BID@0900,1500 [facility] Last Admin: 05/16/22 10:28 Dose: 600 mg Documented By: CRISTIANE Lorazepam (Lorazepam 2 Mg/Ml Vial) 0.5 mg IVPUSH Q6H PRN PRN Reason: Anxiety Magnesium Hydroxide (Milk Of Magnesia 30 Ml Oral.Susp) 30 ml PO DAILY PRN PRN Reason: Constipation Melatonin (Melatonin 3 Mg Tablet) 6 mg PO BEDTIME PRN PRN Reason: Insomnia Melatonin (Melatonin 3 Mg Tablet) 6 mg PO BEDTIME [facility] Last Admin: 05/15/22 20:42 Dose: 6 mg Documented By: BELEN Multivitamins/Vitamin C (Multivitamin Tablet) 1 tab PO DAILY [facility] Last Admin: 05/16/22 10:28 Dose: 1 tab Documented By: CRISTIANE Non-Formulary Medication (Memantine) 14 mg PO DAILY [facility] Omeprazole (Omeprazole 20 Mg Capsule.Dr) 20 mg PO BID [facility] Last Admin: 05/16/22 10:28 Dose: 20 mg Documented By: CRISTIANE Sodium Chloride (0.9 % Sodium Chloride Flush 3 Ml Syringe) 3 ml IVFLUSH QSHIFT [facility] Last Admin: 05/16/22 09:02 Dose: Not Given Documented By: JAMESCL Non-Admin Reason: IV Running Tamsulosin HCl (Tamsulosin Hcl 0.4 Mg Capsule) 0.4 mg PO BEDTIME [facility] Last Admin: 05/15/22 20:41 Dose: 0.4 mg Documented By: BELEN Labs CBC & Chem 7: 05/16/22 08:24 05/15/22 01:48 Labs: Laboratory Results - last 24 hr 05/16/22 05/16/22 08:24 08:24 MCV 92.4 Cancelled MCH 29.9 Cancelled MCHC 32.4 Cancelled RDW 15.0 Cancelled Plt Count 149 L Cancelled MPV 9.8 Cancelled Immature Gran % (Auto) 1.1 H Neut % (Auto) 90.6 H Lymph % (Auto) 3.1 L [place] % (Auto) 4.3 Eos % (Auto) 0.7 Baso % (Auto) 0.2 Lymph # (Auto) 0.4 L [place] # (Auto) 0.5 Eos # (Auto) 0.1 Baso # (Auto) 0.0 Abs Immat Gran (auto) 0.13 H Absolute Neuts (auto) 10.4 H Absolute Nucleated RBC 0.000 Cancelled Nucleated RBC % (auto) 0.0 Cancelled Smear Tech's Comments VERIFIED Microbiology Microbiology Results: Microbiology 05/15/22 Unknown Urine Culture - Preliminary Urine Catheterized - Hinojosa Catheter Gram negative mikhail 05/15/22 01:48 Blood Culture - Preliminary Blood - Venous Prelim: GNR Gram Stain only 05/15/22 01:48 Blood Culture - Preliminary Blood - Venous No growth after 24 hours. Assessment and Plan (1) Acute UTI: Status: Acute (2) Leukocytosis: Status: Acute (3) Acute urinary retention: Status: Acute Plan 71-year-old male with Parkinson's disease, urinary retention here with sepsis due to UTI. #Sepsis due to UTI #UTI #GNR bacteremia--sensitivity pending -ceftriaxone and follow culture. -ID consult pending #hypotension--likely related to sepsis--IVF, no indication to repeat lactic acid at this time # retention--a Hinojosa catheter has been inserted,urological evaluation, continue Flomax #Parkinson's--continue home med. # dementia--continue memantine # severe osteoarthritis of the right hip--morphine p.r.n. for pain. Heparin for DVT prophylaxis Need for inaptient: Sepsis, bacteremia needs IVF and IV Abx and monitoring for response, sepsis not yet resolved Plan of care discussed with the patient and daughter at the bedside Quality Stroke Does the patient have a stroke diagnosis?: No VTE Prior VTE?: No VTE Risk Level:: Medical - moderate - high VTE Device Contraindication: Treatment Not Indicated VTE Drug Contraindication: N/A - Med Ordered
[2022-05-16] MEDS: Milk of Magnesia 30 ML ORAL.SUSP PO (10:37)
[2022-05-16] MEDS: cefTRIAXone sodium 1 GM in 0.9 % Sodium Chloride 50 ML IV (11:09)
[2022-05-16] MEDS: 0.9 % Sodium Chloride 1,000 ML 125 ML IVCONT ×2 (11:09→19:35)
--- NOTE | 2022-05-16 15:52 | W.PM.IDCN ---
History of Present Illness Data of Consult Service Date: 05/16/22 [facility] Provider: CATALINA JOSE Reason for consult: sepsis gram negative rods He presents to hospital with weakness and well as urinary retention. He has cognitive decline and lives at [facility]. He has hospital stay in March for aspiration pneumonia after food impaction and developed urinary retention and constipation. He left hospital and went to [facility] and was not able to stop using Hinojosa catheter. He also had COVID beginning of April and had pain when using Hinojosa. Subsequently he came to ER and had bacteremia and pyuria. Cultures sensitivities are pending. He is scheduled to get THR in mid May. Review of Systems Review of Systems: Yes all other systems are reviewed and are negative [facility] Past Medical History Medical History Constipation COVID-19 Dementia Parkinson's disease Family History Family History Father Brain tumor Family history: reviewed and not pertinent Surgical History Surgical History Hx of knee surgery Social History Social History Household Members: Other Household Members Other:: from [facility] Housing: [facility] Do you presently have visiting nurse or other home services: Yes (from [facility]) Alcohol intake: never Patient Tobacco Use Status: Never used Tobacco Use of substances other than those prescribed or required for medical reasons: No Currently Displaying Signs/Symptoms of Drug Intoxication Withdrawal: No Have you been hit, kicked, punched, or otherwise hurt by someone within the past year? If so, by whom?: No Do you feel safe in your current relationship?: No Current Relationship Is there a partner from a previous relationship who is making you feel unsafe now?: No Are you made to feel afraid or neglected: No Advance Directives: Yes Advance Directives on File: Yes Advance Directives Date on File: 05/03/22 Do you have thoughts of harming others: None Do you have a plan to hurt others: No Plan Recently lost weight without trying: No How much weight loss: Not applicable Eating poorly because of decreased appetite: No Nutrition screen score: 0 Nutrition Risks: No Nutritional Risk Poor oral hygiene: No Meds Allergies Allergy/AdvReac Type Severity Reaction Status Date / Time No Known Allergies Allergy Verified 05/11/22 15:47 Active Medications: Current Medications Acetaminophen (Acetaminophen 325 Mg Tablet) 650 mg PO Q6H PRN PRN Reason: Pain, Mild (Pain Scale 1-3) Acetaminophen (Acetaminophen 325 Mg Tablet) 975 mg PO TID@0600,1200,1800 [facility] Last Admin: 05/16/22 13:15 Dose: 975 mg Carbidopa/Levodopa (Carbidopa/Levodopa Cr 25/100 Tablet.Er) 1 tab PO BEDTIME [facility] Last Admin: 05/15/22 22:04 Dose: 1 tab Carbidopa/Levodopa (Carbidopa/Levodopa 25/100 Tablet) 1.5 tab PO DAILY@0600,0900,1200,1500,1800 [facility] Last Admin: 05/16/22 14:38 Dose: 1.5 tab Escitalopram Oxalate (Escitalopram Oxalate 10 Mg Tablet) 10 mg PO BEDTIME [facility] Last Admin: 05/15/22 20:42 Dose: 10 mg Heparin Sodium (Porcine) (Heparin Sodium,Porcine 5,000 Unit/Ml Vial) 5,000 unit SUBCUT Q12H [facility] Last Admin: 05/16/22 10:28 Dose: 5,000 unit Hydromorphone HCl (Hydromorphone Hcl 0.5 Mg/0.5 Ml Syringe) 0.5 mg IVPUSH Q4H PRN; Protocol PRN Reason: Pain, Severe (Pain Scale 7-10) Last Admin: 05/15/22 15:35 Dose: 0.5 mg Ceftriaxone Sodium 1 gm/ (Sodium Chloride) 50 mls @ 100 mls/hr IV Q24H [facility] Last Infusion: 05/16/22 11:46 Dose: Infused Sodium Chloride (Ns) 1,000 mls @ 125 mls/hr IVCONT .Q8H [facility] Last Admin: 05/16/22 11:09 Dose: 125 mls/hr Ibuprofen (Ibuprofen 600 Mg Tablet) 600 mg PO BID@0900,1500 [facility] Last Admin: 05/16/22 14:38 Dose: 600 mg Lorazepam (Lorazepam 2 Mg/Ml Vial) 0.5 mg IVPUSH Q6H PRN PRN Reason: Anxiety Magnesium Hydroxide (Milk Of Magnesia 30 Ml Oral.Susp) 30 ml PO DAILY PRN PRN Reason: Constipation Last Admin: 05/16/22 10:37 Dose: 30 ml Melatonin (Melatonin 3 Mg Tablet) 6 mg PO BEDTIME PRN PRN Reason: Insomnia Melatonin (Melatonin 3 Mg Tablet) 6 mg PO BEDTIME [facility] Last Admin: 05/15/22 20:42 Dose: 6 mg Multivitamins/Vitamin C (Multivitamin Tablet) 1 tab PO DAILY [facility] Last Admin: 05/16/22 10:28 Dose: 1 tab Non-Formulary Medication (Memantine) 14 mg PO DAILY [facility] Omeprazole (Omeprazole 20 Mg Capsule.Dr) 20 mg PO BID [facility] Last Admin: 05/16/22 10:28 Dose: 20 mg Sodium Chloride (0.9 % Sodium Chloride Flush 3 Ml Syringe) 3 ml IVFLUSH QSHIFT [facility] Last Admin: 05/16/22 14:37 Dose: Not Given Tamsulosin HCl (Tamsulosin Hcl 0.4 Mg Capsule) 0.4 mg PO BEDTIME [facility] Last Admin: 05/15/22 20:41 Dose: 0.4 mg Home Medications Medication Instructions Recorded Confirmed Last Taken Type acetaminophen 500 mg tablet 1,000 mg PO TID@0600,1200,1800 05/03/22 05/15/22 Unknown History citalopram 20 mg tablet 20 mg PO BEDTIME 05/03/22 05/15/22 Unknown History ibuprofen 600 mg tablet 600 mg PO BID@0900,1500 05/03/22 05/15/22 Unknown History melatonin 5 mg tablet 5 mg PO BEDTIME 05/03/22 05/15/22 Unknown History multivitamin 1 tab PO DAILY 05/03/22 05/15/22 Unknown History omega-3 fatty acids 1 cap PO DAILY 05/03/22 05/15/22 Unknown History pantoprazole 40 mg tablet,delayed 1 tab PO BID 05/03/22 05/15/22 Unknown History release carbidopa 25 mg-levodopa 100 mg 1 tab PO DAILY@0600,0900,1200 05/11/22 05/15/22 Unknown History tablet memantine 14 mg capsule 14 mg PO DAILY 05/11/22 05/15/22 Unknown History sprinkle,extended release 24hr carbidopa 25 mg-levodopa 100 mg 1 tab PO DAILY@1500,1800 05/15/22 05/15/22 Unknown History tablet tamsulosin 0.4 mg capsule 0.4 mg PO BEDTIME 05/15/22 05/15/22 Unknown History tramadol 50 mg tablet 50 mg PO Q8H PRN Pain 05/15/22 05/15/22 Unknown History Physical Exam Vital Signs: Vital Signs: Last Vital Signs Temp 98.3 F 05/16/22 11:40 Pulse 59 05/16/22 11:40 Resp 15 05/16/22 11:40 BP 88/56 L 05/16/22 11:40 Pulse Ox 96 05/16/22 11:40 O2 Del Method 05/16/22 11:40 BMI result Body Mass Index 25.0 Const: General: cooperative HEENT: Head: Yes normal to inspection Mouth: Normal oral and palatal mucosa present Resp: Effort & Inspection: normal respiratory effort Cardio: Rate: regular rate Rhythm: regular rhythm GI: Palpation (GI): Soft to palpation and nontender Extrem: General: Yes normal to inspection Results Labs CBC & Chem 7: 05/16/22 08:24 05/15/22 01:48 Labs: Short CBC 05/16/22 05/16/22 Range/Units 08:24 08:24 WBC 11.5 H Cancelled (4.8-10.8) X10*3/uL Hgb 9.9 L Cancelled (14.0-18.0) g/dl Hct 30.6 L Cancelled (42.0-52.0) % Plt Count 149 L Cancelled (160-400) X10*3/uL Microbiology Microbiology Results: Microbiology 05/15/22 Unknown Urine Catheterized - Hinojosa Catheter Urine Culture - Preliminary Gram negative mikhail 05/15/22 01:48 Blood - Venous Blood Culture - Preliminary Prelim: GNR Gram Stain only 05/15/22 01:48 Blood - Venous Blood Culture - Preliminary No growth after 24 hours. Assessment and Plan (1) Acute UTI: Status: Acute (2) Leukocytosis: Qualifiers: Leukocytosis type: unspecified Qualified Code(s): D72.829 - Elevated white blood cell count, unspecified Status: Acute He has bacteremia with leukocytosis This is likely urinary source due to retention Plan Continue antibiotics Await culture. Finish oral antibiotic for 14 d total.
--- NOTE | 2022-05-16 16:05 | MHC.CLN ---
NUTRITION CONSULT FOR SKIN. BLANCHABLE REDNESS TO BUTTOCK. ELO =18. DIET=REGULAR. NO ADDITIONAL NUTRITION INTERVENTIONS AT THIS TIME.
[2022-05-16] MEDS: Melatonin 3 MG TABLET 6 MG PO (21:17)
[2022-05-16] MEDS: Escitalopram Oxalate 10 MG TABLET PO (21:18)
[2022-05-16] MEDS: Carbidopa/Levodopa CR 25/100 TABLET.ER 1 TAB PO (21:18)
[2022-05-16] MEDS: Tamsulosin HCL 0.4 MG CAPSULE PO (21:19)
[2022-05-17] MEDS: oxyCODONE HCl Immed Release 5 MG TABLET PO (01:52)
[2022-05-17] MEDS: 0.9 % Sodium Chloride 1,000 ML 125 ML IVCONT ×2 (03:38→12:15)
--- NOTE | 2022-05-17 04:18 | PC.NURSE ---
Pt slept intermittently throughout the night. Pt woke up c/o pain around 01:00. Pt slightly confused at this time. Dr Quinteros notified due to inability to give prn Tylenol (he would have been over the daily limit as he is on scheduled Tylenol and Ibuprofen during the day. Dr ordered a one time dose of Oxycodone which was given around 01:20 with good effect. Will continue to monitor.
[2022-05-17] MEDS: Carbidopa/Levodopa 25/100 TABLET 1.5 TAB PO ×5 (05:41→18:07)
[2022-05-17] MEDS: Acetaminophen 325 MG TABLET 975 MG PO ×3 (05:41→18:06)
[2022-05-17 07:20] VITALS: BP 142/82; PULSE 75; RESP 16; TEMP 36.9; O2SAT 96
[2022-05-17] MEDS: Heparin Sodium,Porcine 5,000 UNIT/ML VIAL 5000 UNIT SUBCUT ×2 (08:48→21:40)
[2022-05-17] MEDS: Ibuprofen 600 MG TABLET PO ×2 (08:49→15:08)
[2022-05-17] MEDS: Multivitamin TABLET 1 TAB PO (08:51)
[2022-05-17] MEDS: Omeprazole 20 MG CAPSULE.DR PO ×2 (08:51→21:41)
--- NOTE | 2022-05-17 09:00 | P.CNUR_ITS ---
History of Present Illness Consult details Consult date: 05/17/22 Narrative: Consultation urinary retention 71-year-old male. Background of dementia and Parkinson's. Had been admitted to [facility] with pneumonia and to rehab. Admitted through [facility] with question of UTI and urinary retention Hinojosa catheter placed Unfortunately total amount gained from catheter placement is not documented Recommend alpha-judd with finasteride If catheterized amount was less than 500 cc can perform voiding trial at 72 hours Review of Systems Constitutional: Constitutional: Reports as per HPI and Reports no additional constitutional complaints Cardiovascular: Cardiovascular: Reports as per HPI and Reports no additional cardiovascular complaints Respiratory: Respiratory: Reports as per HPI and Reports no additional respiratory complaints Gastrointestinal: Gastrointestinal: Reports as per HPI and Reports no additional gastrointestinal complaints Genitourinary: Genitourinary: Reports as per HPI Musculoskeletal: Musculoskeletal: Reports no additional musculoskeletal complaints and Reports as per HPI Neurologic: Reports system reviewed and no additional complaints, except as documented and Reports as per HPI PMFSH Past Medical History Medical History Constipation COVID-19 Dementia Parkinson's disease Family History Family History Father Brain tumor Family history: reviewed and not pertinent Surgical History Surgical History Hx of knee surgery Social History Social History Household Members: Other Household Members Other:: from medical center clinic Housing: Shelter Do you presently have visiting nurse or other home services: Yes (from medical center clinic) Alcohol intake: never Patient Tobacco Use Status: Never used Tobacco Use of substances other than those prescribed or required for medical reasons: No Currently Displaying Signs/Symptoms of Drug Intoxication Withdrawal: No Have you been hit, kicked, punched, or otherwise hurt by someone within the past year? If so, by whom?: No Do you feel safe in your current relationship?: No Current Relationship Is there a partner from a previous relationship who is making you feel unsafe now?: No Are you made to feel afraid or neglected: No Advance Directives: Yes Advance Directives on File: Yes Advance Directives Date on File: 05/03/22 Do you have thoughts of harming others: None Do you have a plan to hurt others: No Plan Recently lost weight without trying: No How much weight loss: Not applicable Eating poorly because of decreased appetite: No Nutrition screen score: 0 Nutrition Risks: No Nutritional Risk Poor oral hygiene: No Meds Allergies Allergy/AdvReac Type Severity Reaction Status Date / Time No Known Allergies Allergy Verified 05/11/22 15:47 Active Medications: Current Medications Acetaminophen (Acetaminophen 325 Mg Tablet) 650 mg PO Q6H PRN PRN Reason: Pain, Mild (Pain Scale 1-3) Acetaminophen (Acetaminophen 325 Mg Tablet) 975 mg PO TID@0600,1200,1800 [facility] Last Admin: 05/17/22 05:41 Dose: 975 mg Carbidopa/Levodopa (Carbidopa/Levodopa Cr 25/100 Tablet.Er) 1 tab PO BEDTIME [facility] Last Admin: 05/16/22 21:18 Dose: 1 tab Carbidopa/Levodopa (Carbidopa/Levodopa 25/100 Tablet) 1.5 tab PO DAILY@0600,0900,1200,1500,1800 [facility] Last Admin: 05/17/22 08:51 Dose: 1.5 tab Escitalopram Oxalate (Escitalopram Oxalate 10 Mg Tablet) 10 mg PO BEDTIME [facility] Last Admin: 05/16/22 21:18 Dose: 10 mg Heparin Sodium (Porcine) (Heparin Sodium,Porcine 5,000 Unit/Ml Vial) 5,000 unit SUBCUT Q12H [facility] Last Admin: 05/17/22 08:48 Dose: 5,000 unit Hydromorphone HCl (Hydromorphone Hcl 0.5 Mg/0.5 Ml Syringe) 0.5 mg IVPUSH Q4H PRN; Protocol PRN Reason: Pain, Severe (Pain Scale 7-10) Last Admin: 05/15/22 15:35 Dose: 0.5 mg Ceftriaxone Sodium 1 gm/ (Sodium Chloride) 50 mls @ 100 mls/hr IV Q24H [facility] Last Infusion: 05/16/22 11:46 Dose: Infused Sodium Chloride (Ns) 1,000 mls @ 125 mls/hr IVCONT .Q8H [facility] Last Admin: 05/17/22 03:38 Dose: 125 mls/hr Ibuprofen (Ibuprofen 600 Mg Tablet) 600 mg PO BID@0900,1500 [facility] Last Admin: 05/17/22 08:49 Dose: 600 mg Lorazepam (Lorazepam 2 Mg/Ml Vial) 0.5 mg IVPUSH Q6H PRN PRN Reason: Anxiety Magnesium Hydroxide (Milk Of Magnesia 30 Ml Oral.Susp) 30 ml PO DAILY PRN PRN Reason: Constipation Last Admin: 05/16/22 10:37 Dose: 30 ml Melatonin (Melatonin 3 Mg Tablet) 6 mg PO BEDTIME PRN PRN Reason: Insomnia Melatonin (Melatonin 3 Mg Tablet) 6 mg PO BEDTIME [facility] Last Admin: 05/16/22 21:17 Dose: 6 mg Multivitamins/Vitamin C (Multivitamin Tablet) 1 tab PO DAILY [facility] Last Admin: 05/17/22 08:51 Dose: 1 tab Non-Formulary Medication (Memantine) 14 mg PO DAILY [facility] Omeprazole (Omeprazole 20 Mg Capsule.Dr) 20 mg PO BID [facility] Last Admin: 05/17/22 08:51 Dose: 20 mg Sodium Chloride (0.9 % Sodium Chloride Flush 3 Ml Syringe) [address] [facility] Last Admin: 05/17/22 08:18 Dose: Not Given Tamsulosin HCl (Tamsulosin Hcl 0.4 Mg Capsule) 0.4 mg PO BEDTIME [facility] Last Admin: 05/16/22 21:19 Dose: 0.4 mg Home Medications Medication Instructions Recorded Confirmed Last Taken Type acetaminophen 500 mg tablet 1,000 mg PO TID@0600,1200,1800 05/03/22 05/15/22 Unknown History citalopram 20 mg tablet 20 mg PO BEDTIME 05/03/22 05/15/22 Unknown History ibuprofen 600 mg tablet 600 mg PO BID@0900,1500 05/03/22 05/15/22 Unknown History melatonin 5 mg tablet 5 mg PO BEDTIME 05/03/22 05/15/22 Unknown History multivitamin 1 tab PO DAILY 05/03/22 05/15/22 Unknown History omega-3 fatty acids 1 cap PO DAILY 05/03/22 05/15/22 Unknown History pantoprazole 40 mg tablet,delayed 1 tab PO BID 05/03/22 05/15/22 Unknown History release carbidopa 25 mg-levodopa 100 mg 1 tab PO DAILY@0600,0900,1200 05/11/22 05/15/22 Unknown History tablet memantine 14 mg capsule 14 mg PO DAILY 05/11/22 05/15/22 Unknown History sprinkle,extended release 24hr carbidopa 25 mg-levodopa 100 mg 1 tab PO DAILY@1500,1800 05/15/22 05/15/22 Unknown History tablet tamsulosin 0.4 mg capsule 0.4 mg PO BEDTIME 05/15/22 05/15/22 Unknown History tramadol 50 mg tablet 50 mg PO Q8H PRN Pain 05/15/22 05/15/22 Unknown History Physical Exam Vital Signs: Vital Signs: Last Vital Signs Temp 98.4 F 05/17/22 07:20 Pulse 75 05/17/22 07:20 Resp 16 05/17/22 07:20 BP 142/82 H 05/17/22 07:20 Pulse Ox 96 05/17/22 07:20 O2 Del Method 05/17/22 07:20 BMI result Body Mass Index 25.0 Const: General: cooperative, healthy appearing, comfortable and no acute distress Orientation/consciousness: patient oriented x3 HEENT: Face and sinus: Yes normal facial exam Mouth: moist mucous membranes Neck: Neck: Yes normal visual inspection, Yes full ROM and Yes trachea midline Chest: Chest palpation & inspection: normal inspection of the chest Resp: Effort & Inspection: normal respiratory effort, able to speak in complete sentences and no respiratory distress GI: Inspection: Yes normal to inspection Back/Spine/Pelvis: Cervical Spine: normal cervical lordosis Thoracic/Lumbar Spine: thoracic and lumbar spine normal to inspection Skin: General skin exam: no rashes or lesions noted Neuro: General: patient oriented x3, tone normal and moves all extremities Extrem: General: Yes normal to inspection and Yes capillary refill normal Results Labs Result diagrams: 05/16/22 08:24 05/15/22 01:48 Labs: Abnormal lab results 05/16/22 Range/Units 08:24 WBC 11.5 H (4.8-10.8) X10*3/uL RBC 3.31 L (4.60-5.80) X10*6/uL Hgb 9.9 L (14.0-18.0) g/dl Hct 30.6 L (42.0-52.0) % Plt Count 149 L (160-400) X10*3/uL Immature Gran % (Auto) 1.1 H (0.0-0.4) % Neut % (Auto) 90.6 H (45-73) % Lymph % (Auto) 3.1 L (20-40) % Lymph # (Auto) 0.4 L (1.2-4.9) X10*3/uL Abs Immat Gran (auto) 0.13 H (0.00-0.03) X10*3/uL Absolute Neuts (auto) 10.4 H (2.0-8.3) x10*3/uL Short CBC 05/16/22 Range/Units 08:24 WBC 11.5 H (4.8-10.8) X10*3/uL Hgb 9.9 L (14.0-18.0) g/dl Hct 30.6 L (42.0-52.0) % Plt Count 149 L (160-400) X10*3/uL Urine 05/15/22 Range/Units 01:48 Urine Color YELLOW Urine Appearance HAZY Urine pH 5.5 (5.0-8.0) Ur Specific [place] 1.020 (1.005-1.025) Urine Protein TRACE (NEG-TRACE) MG/DL Urine Glucose (UA) NEG (NEG) MG/DL All other labs normal. Assessment and Plan (1) Acute urinary retention: Status: Acute (2) Acute UTI: Status: Acute Plan 72 hour voiding trial Procedures Date of Service Date of Service: 05/17/22
[2022-05-17] MEDS: Finasteride 5 MG TABLET PO (10:23)
--- NOTE | 2022-05-17 10:24 | MHC.CM.PN ---
IMM 05/17/22, CM MET W/PT AND DTR/HCP [facility] AT BEDSIDE, DTR REPORTS PT HAS BEEN IN AND OUT OF HOSPITAL AT [facility] AND THEN HERE WITH COVID, CONSTIPATION AND RECENTLY A UTI, [facility], DTR REPORTS SHE HAS BEEN HAPPY W/[facility] HOWEVER HE NEEDS MORE CARE [facility] WILL PLAN ON TAKING PT HOME AND REPORTS SHE HAS ASKED HOSPITALIST FOR A FEW MORE DAYS TO GET THINGS SET UP, PT ALREADY HAS A ROOM THAT WAS ADDED ON AT DTRS HOUSE, HOWEVER THEY ARE WAITING FOR HOSPITAL BED AND W/C, PT'S DTR REPORTS SHE [facility]ERS [facility] FOR [facility], IS WORKING W/[facility] [facility] FOR [employer] AND WILL BE PRIVATE PAYING FOR [employer]. D/C PLAN: HOME W/DTR AT [address] [place] [address] W/[facility], MAY NEED TRANSPORT
[2022-05-17] MEDS: cefTRIAXone sodium 1 GM in 0.9 % Sodium Chloride 50 ML IV (10:26)
--- NOTE | 2022-05-17 11:06 | P.PNIM_ITS ---
Subjective Subjective Date of Service: 05/17/22 Interval History: f/u on urinary retention, UTI Interval history: much better than yesterday, pain is better 3/10 which is tolerable, mental status is sharper, was eating breakfast effortlessly Review of Systems no fever, no sob, no dysuria right hip pain botter Physical Exam Vital Signs: Vital Signs: Last Vital Signs Temp 98.4 F 05/17/22 07:20 Pulse 75 05/17/22 07:20 Resp 16 05/17/22 07:20 BP 142/82 H 05/17/22 07:20 Pulse Ox 96 05/17/22 07:20 O2 Del Method 05/17/22 07:20 BMI result Body Mass Index 25.0 Const: Other: General: AO X 2, no acute distress Resp: CTA bilateral CVS: S1,S2,RRR GI: +BS, NT, no distention Skin: No rash Neuro: motor grossly intact MSK: hip pain with movement Psych: appropriate affect Objective Data Active Medications Acetaminophen (Acetaminophen 325 Mg Tablet) 650 mg PO Q6H PRN PRN Reason: Pain, Mild (Pain Scale 1-3) Acetaminophen (Acetaminophen 325 Mg Tablet) 975 mg PO TID@0600,1200,1800 [facility] Last Admin: 05/17/22 05:41 Dose: 975 mg Documented By: PARAS Carbidopa/Levodopa (Carbidopa/Levodopa Cr 25/100 Tablet.Er) 1 tab PO BEDTIME [facility] Last Admin: 05/16/22 21:18 Dose: 1 tab Documented By: PARAS Carbidopa/Levodopa (Carbidopa/Levodopa 25/100 Tablet) 1.5 tab PO DAILY@0600,0900,1200,1500,1800 [facility] Last Admin: 05/17/22 08:51 Dose: 1.5 tab Documented By: CRISTIANE Escitalopram Oxalate (Escitalopram Oxalate 10 Mg Tablet) 10 mg PO BEDTIME [facility] Last Admin: 05/16/22 21:18 Dose: 10 mg Documented By: PARAS Finasteride (Finasteride 5 Mg Tablet) 5 mg PO DAILY [facility] Last Admin: 05/17/22 10:23 Dose: 5 mg Documented By: CRISTIANE Heparin Sodium (Porcine) (Heparin Sodium,Porcine 5,000 Unit/Ml Vial) 5,000 unit SUBCUT Q12H [facility] Last Admin: 05/17/22 08:48 Dose: 5,000 unit Documented By: DARWINEMA Hydromorphone HCl (Hydromorphone Hcl 0.5 Mg/0.5 Ml Syringe) 0.5 mg IVPUSH Q4H PRN; Protocol PRN Reason: Pain, Severe (Pain Scale 7-10) Last Admin: 05/15/22 15:35 Dose: 0.5 mg Documented By: ODALIS Ceftriaxone Sodium 1 gm/ (Sodium Chloride) 50 mls @ 100 mls/hr IV Q24H [facility] Last Admin: 05/17/22 10:26 Dose: 100 mls/hr Documented By: CRISTIANE Sodium Chloride (Ns) 1,000 mls @ 125 mls/hr IVCONT .Q8H [facility] Last Admin: 05/17/22 03:38 Dose: 125 mls/hr Documented By: PARAS Ibuprofen (Ibuprofen 600 Mg Tablet) 600 mg PO BID@0900,1500 [facility] Last Admin: 05/17/22 08:49 Dose: 600 mg Documented By: CRISTIANE Lorazepam (Lorazepam 2 Mg/Ml Vial) 0.5 mg IVPUSH Q6H PRN PRN Reason: Anxiety Magnesium Hydroxide (Milk Of Magnesia 30 Ml Oral.Susp) 30 ml PO DAILY PRN PRN Reason: Constipation Last Admin: 05/16/22 10:37 Dose: 30 ml Documented By: CRISTIANE Melatonin (Melatonin 3 Mg Tablet) 6 mg PO BEDTIME PRN PRN Reason: Insomnia Melatonin (Melatonin 3 Mg Tablet) 6 mg PO BEDTIME [facility] Last Admin: 05/16/22 21:17 Dose: 6 mg Documented By: PARAS Multivitamins/Vitamin C (Multivitamin Tablet) 1 tab PO DAILY [facility] Last Admin: 05/17/22 08:51 Dose: 1 tab Documented By: CRISTIANE Non-Formulary Medication (Memantine) 14 mg PO DAILY [facility] Omeprazole (Omeprazole 20 Mg Capsule.Dr) 20 mg PO BID [facility] Last Admin: 05/17/22 08:51 Dose: 20 mg Documented By: DARWINEMA Sodium Chloride (0.9 % Sodium Chloride Flush 3 Ml Syringe) 3 ml IVFLUSH QSHIFT [facility] Last Admin: 05/17/22 08:18 Dose: Not Given Documented By: HO.COTEMA Non-Admin Reason: IV Running Tamsulosin HCl (Tamsulosin Hcl 0.4 Mg Capsule) 0.4 mg PO BEDTIME [facility] Last Admin: 05/16/22 21:19 Dose: 0.4 mg Documented By: PARAS Labs CBC & Chem 7: 05/16/22 08:24 05/15/22 01:48 Microbiology Microbiology Results: Microbiology 05/15/22 01:48 Blood Culture - Preliminary Blood - Venous Gram negative mikhail 05/15/22 Unknown Urine Culture - Final Urine Catheterized - Hinojosa Catheter Providencia stuartii 05/15/22 01:48 Blood Culture - Preliminary Blood - Venous No growth after 48 hours. Assessment and Plan (1) Acute UTI: Status: Acute (2) Leukocytosis: Status: Acute (3) Acute urinary retention: Status: Acute Plan 71-year-old male with Parkinson's disease, urinary retention here with sepsis due to UTI. #Sepsis due to UTI--sepsis to have resolved with BP now above normal #UTI--culture = Providencia stuartii--sensitive to Ceftriaxone #GNR bacteremia--sensitivity pending -ceftriaxone and follow culture. -ID to make final recommendation of oral vs IV for home. #hypotension--likely related to sepsis--IVF, no indication to repeat lactic acid at this time--This has resolved # Urinary retention--a Hinojosa catheter has been inserted,urological evaluation is pending, continue Flomax #Parkinson's--continue home med. # Dementia--continue memantine # severe osteoarthritis of the right hip--morphine p.r.n. for pain. He is schedu le to have schedule middle of next months Heparin for DVT prophylaxis Need for inaptient: Sepsis, bacteremia needs IVF and IV Abx and monitoring for response, awaiting culture sensitivyt for final antibiotics selection and mode of administration Plan of care discussed with the patient and daughter at the bedside and confirmed code to be DNR/DNI--MOLST form available. Ultimately daughter wants to take him home with services when ready for discharge Quality Stroke Does the patient have a stroke diagnosis?: No VTE Prior VTE?: No VTE Risk Level:: Medical - moderate - high VTE Device Contraindication: Treatment Not Indicated VTE Drug Contraindication: N/A - Med Ordered
[2022-05-17 11:36] VITALS: BP 111/65; PULSE 74; RESP 15; TEMP 36.6; O2SAT 99
[2022-05-17 15:31] VITALS: BP 137/72; PULSE 70; RESP 18; TEMP 36.7; O2SAT 98
[2022-05-17] MEDS: Escitalopram Oxalate 10 MG TABLET PO (21:40)
[2022-05-17] MEDS: Melatonin 3 MG TABLET 6 MG PO (21:40)
[2022-05-17] MEDS: Memantine HCl 5 MG TABLET PO (21:40)
[2022-05-17] MEDS: Carbidopa/Levodopa CR 25/100 TABLET.ER 1 TAB PO (21:40)
[2022-05-17] MEDS: Tamsulosin HCL 0.4 MG CAPSULE PO (21:41)
[2022-05-17] MEDS: 0.9 % Sodium Chloride Flush 3 ML SYRINGE IVFLUSH (21:41)
[2022-05-17 23:28] VITALS: BP 174/90; PULSE 61; RESP 19; TEMP 36.3; O2SAT 98
[2022-05-17 23:33] VITALS: BP 174/90; PULSE 60; RESP 19; TEMP 36.2; O2SAT 98
[2022-05-18] VITALS (11 sets, daily range): BP systolic 103–167; BP diastolic 63–100; PULSE 58–88; RESP 15–18; TEMP 36.3–37.1; O2SAT 94–98
[2022-05-18] MEDS: 0.9 % Sodium Chloride 1,000 ML 125 ML IVCONT (03:05)
[2022-05-18] MEDS: Acetaminophen 325 MG TABLET 975 MG PO ×2 (05:45→12:04)
[2022-05-18] MEDS: Carbidopa/Levodopa 25/100 TABLET 1.5 TAB PO ×4 (05:45→20:26)
[2022-05-18] MEDS: Omeprazole 20 MG CAPSULE.DR PO ×2 (07:36→20:05)
[2022-05-18] MEDS: Finasteride 5 MG TABLET PO (07:36)
[2022-05-18] MEDS: Multivitamin TABLET 1 TAB PO (07:37)
[2022-05-18] MEDS: Memantine HCl 5 MG TABLET PO (07:37)
[2022-05-18] MEDS: HYDROmorphone HCl 0.5 MG/0.5 ML SYRINGE IVPUSH ×3 (07:37→23:49)
[2022-05-18] MEDS: 0.9 % Sodium Chloride Flush 3 ML SYRINGE IVFLUSH ×3 (07:38→23:34)
[2022-05-18] MEDS: cefTRIAXone sodium 1 GM in 0.9 % Sodium Chloride 50 ML IV (12:05)
--- NOTE | 2022-05-18 12:46 | P.PNIM_ITS ---
Subjective Subjective Date of Service: 05/18/22 Interval History: Seen and examined this Follow-up for sepsis/UTI/bacteremia Patient awake, alert, is reporting some suprapubic tenderness No other complaints at this time, ROS limited by underlying dementia Review of Systems Review of Systems: Yes all other systems are reviewed and are negative Constitutional Constitutional: Denies chills and Denies fever(s) Cardiovascular Cardiovascular: Denies chest pain and Denies dyspnea Respiratory Respiratory: Denies dyspnea Neurologic Neurologic: Reports confusion Psychiatric Psychiatric: Reports confusion Physical Exam Vital Signs: Vital Signs: Last Vital Signs Temp 98.2 F 05/18/22 11:27 Pulse 58 05/18/22 11:27 Resp 18 05/18/22 11:27 BP 164/89 H 05/18/22 11:27 Pulse Ox 97 05/18/22 11:27 O2 Del Method 05/18/22 11:27 BMI result Body Mass Index 25.0 Const: General: cooperative, comfortable, alert, awake and confusion Lucas entation/consciousness: confusion Resp: Effort & Inspection: normal respiratory effort and able to speak in complete sentences Auscultation: clear to auscultation bilaterally Cardio: Rate: regular rate Heart sounds: S1 normal heart sound present and S2 normal heart sound present GI: Inspection: No distended Palpation (GI): Soft to palpation : Other: Hinojosa draining clear yellow urine Neuro: General: confusion Extrem: Other: Moving all 4 extremities spontaneously General: Yes no pedal edema Objective Data Active Medications Acetaminophen (Acetaminophen 325 Mg Tablet) 650 mg PO Q6H PRN PRN Reason: Pain, Mild (Pain Scale 1-3) Acetaminophen (Acetaminophen 325 Mg Tablet) 975 mg PO TID@0600,1200,1800 [facility] Last Admin: 05/18/22 12:04 Dose: 975 mg Documented By: ALEKS Carbidopa/Levodopa (Carbidopa/Levodopa Cr 25/100 Tablet.Er) 1 tab PO BEDTIME [facility] Last Admin: 05/17/22 21:40 Dose: 1 tab Documented By: AMANDO Carbidopa/Levodopa (Carbidopa/Levodopa 25/100 Tablet) 1.5 tab PO DAILY@0600,090 0,1200,1500,1800 [facility] Last Admin: 05/18/22 12:16 Dose: 1.5 tab Documented By: ALEKS Escitalopram Oxalate (Escitalopram Oxalate 10 Mg Tablet) 10 mg PO BEDTIME [facility] Last Admin: 05/17/22 21:40 Dose: 10 mg Documented By: AMANDO Finasteride (Finasteride 5 Mg Tablet) 5 mg PO DAILY [facility] Last Admin: 05/18/22 07:36 Dose: 5 mg Documented By: ALEKS Heparin Sodium (Porcine) (Heparin Sodium,Porcine 5,000 Unit/Ml Vial) 5,000 unit SUBCUT Q12H [facility] Last Admin: 05/18/22 10:10 Dose: Not Given Documented By: ALEKS Non-Admin Reason: Off Unit: Surgery Hydromorphone HCl (Hydromorphone Hcl 0.5 Mg/0.5 Ml Syringe) 0.5 mg IVPUSH Q4H PRN; Protocol PRN Reason: Pain, Severe (Pain Scale 7-10) Last Admin: 05/18/22 12:06 Dose: 0.5 mg Documented By: ALEKS Ceftriaxone Sodium 1 gm/ (Sodium Chloride) 50 mls @ 100 mls/hr IV Q24H [facility] Last Admin: 05/18/22 12:05 Dose: 100 mls/hr Documented By: ALEKS Ibuprofen (Ibuprofen 600 Mg Tablet) 600 mg PO BID@0900,1500 [facility] Last Admin: 05/18/22 09:47 Dose: Not Given Documented By: ALEKS Non-Admin Reason: Patient Refused Lorazepam (Lorazepam 2 Mg/Ml Vial) 0.5 mg IVPUSH Q6H PRN PRN Reason: Anxiety Magnesium Hydroxide (Milk Of Magnesia 30 Ml Oral.Susp) 30 ml PO DAILY PRN PRN Reason: Constipation Last Admin: 05/16/22 10:37 Dose: 30 ml Documented By: COTEMA Melatonin (Melatonin 3 Mg Tablet) 6 mg PO BEDTIME PRN PRN Reason: Insomnia Melatonin (Melatonin 3 Mg Tablet) 6 mg PO BEDTIME [facility] Last Admin: 05/17/22 21:40 Dose: 6 mg Documented By: AMANDO Memantine (Memantine Hcl 5 Mg Tablet) 5 mg PO BID [facility] Last Admin: 05/18/22 07:37 Dose: 5 mg Documented By: ALEKS Multivitamins/Vitamin C (Multivitamin Tablet) 1 tab PO DAILY [facility] Last Admin: 05/18/22 07:37 Dose: 1 tab Documented By: ALEKS Omeprazole (Omeprazole 20 Mg Capsule.) 20 mg PO BID [facility] Last Admin: 05/18/22 07:36 Dose: 20 mg Documented By: ALEKS Sodium Chloride (0.9 % Sodium Chloride Flush 3 Ml Syringe) 3 ml IVFLUSH QSHIFT [facility] Last Admin: 05/18/22 07:38 Dose: 3 ml Documented By: ALEKS Tamsulosin HCl (Tamsulosin Hcl 0.4 Mg Capsule) 0.4 mg PO BEDTIME [facility] Last Admin: 05/17/22 21:41 Dose: 0.4 mg Documented By: AMANDO Labs CBC & Chem 7: 05/16/22 08:24 05/15/22 01:48 Microbiology Microbiology Results: Microbiology 05/15/22 01:48 Blood Culture - Final Blood - Venous Providencia stuartii Assessment and Plan (1) Acute UTI: Status: Acute Plan 71-year-old male with Parkinson's disease, urinary retention here with sepsis d ue to UTI. #Sepsis due to UTI--sepsis to have resolved with BP now above normal #UTI--culture = Providencia stuartii--sensitive to Ceftriaxone #GNR bacteremia-blood cultures growing same. Discussed with ID, recommended Ceftin 500 b.i.d. times 21 days on discharge #hypotension--likely related to sepsis--IVF, no indication to repeat lactic acid at this time--This has resolved # Urinary retention--a Hinojosa catheter has been inserted -seen by Urology-discussed suprapubic tube placement during this admission -continue Flomax, Proscar added by Urology #Parkinson's--continue home meds # Dementia--continue memantine # severe osteoarthritis of the right hip--morphine p.r.n. for pain- scheduled for hip replacement in the middle of May with [facility] Heparin for DVT prophylaxis Need for inaptient: Sepsis, bacteremia needs IVF and IV Abx and monitoring for response, awaiting culture sensitivity for final antibiotics selection and mode of administration Plan of care discussed with the patient and daughter at the bedside and confirmed code to be DNR/DNI--MOLST form available. Ultimately daughter wants to take him home with services when ready for discharge Quality Stroke Does the patient have a stroke diagnosis?: No VTE Prior VTE?: No VTE Risk Level:: Medical - moderate - high VTE Device Contraindication: Treatment Not Indicated VTE Drug Contraindication: N/A - Med Ordered
--- NOTE | 2022-05-18 16:43 | P.CONAN_ITS ---
HPI - Anesthesia Eval Consult details Narrative: urinary retention PMFSH Active Problems Active Problems: All Active Problems (Updated 05/15/22 @ 07:46 by Cheo Alcaraz MD) Acute UTI (Acute) Leukocytosis (Acute) Acute urinary retention (Acute) Hallucinations (Acute) Dementia (Acute) Past Medical History Medical History Constipation COVID-19 Dementia Parkinson's disease Family History Family History Father Brain tumor Family history of problems with anesthesia: No Surgical History Surgical History Hx of knee surgery History of Problems with Anesthesia: No Social History Social History Household Members: Other Household Members Other:: from [facility] Housing: Custodial Do you presently have visiting nurse or other home services: Yes (from [facility]) Alcohol intake: never Patient Tobacco Use Status: Never used Tobacco Use of substances other than those prescribed or required for medical reasons: No Currently Displaying Signs/Symptoms of Drug Intoxication Withdrawal: No Have you been hit, kicked, punched, or otherwise hurt by someone within the past year? If so, by whom?: No Do you feel safe in your current relationship?: No Current Relationship Is there a partner from a previous relationship who is making you feel unsafe now?: No Are you made to feel afraid or neglected: No Advance Directives: Yes Advance Directives on File: Yes Advance Directives Date on File: 05/03/22 Do you have thoughts of harming others: None Do you have a plan to hurt others: No Plan Recently lost weight without trying: No How much weight loss: Not applicable Eating poorly because of decreased appetite: No Nutrition screen score: 0 Nutrition Risks: No Nutritional Risk Poor oral hygiene: No service: No Current occupational status: unemployed and retired Meds Allergies Allergy/AdvReac Type Severity Reaction Status Date / Time No Known Allergies Allergy Verified 05/11/22 15:47 Active Medications: Current Medications Acetaminophen (Acetaminophen 325 Mg Tablet) 650 mg PO Q6H PRN PRN Reason: Pain, Mild (Pain Scale 1-3) Acetaminophen (Acetaminophen 325 Mg Tablet) 975 mg PO TID@0600,1200,1800 [facility] Last Admin: 05/18/22 12:04 Dose: 975 mg Carbidopa/Levodopa (Carbidopa/Levodopa Cr 25/100 Tablet.Er) 1 tab PO BEDTIME [facility] Last Admin: 05/17/22 21:40 Dose: 1 tab Carbidopa/Levodopa (Carbidopa/Levodopa 25/100 Tablet) 1.5 tab PO DAILY@0600,0900,1200,1500,1800 [facility] Last Admin: 05/18/22 15:56 Dose: Not Given Escitalopram Oxalate (Escitalopram Oxalate 10 Mg Tablet) 10 mg PO BEDTIME [facility] Last Admin: 05/17/22 21:40 Dose: 10 mg Finasteride (Finasteride 5 Mg Tablet) 5 mg PO DAILY [facility] Last Admin: 05/18/22 07:36 Dose: 5 mg Heparin Sodium (Porcine) (Heparin Sodium,Porcine 5,000 Unit/Ml Vial) 5,000 unit SUBCUT Q12H [facility] Last Admin: 05/18/22 10:10 Dose: Not Given Hydromorphone HCl (Hydromorphone Hcl 0.5 Mg/0.5 Ml Syringe) 0.5 mg IVPUSH Q4H PRN; Protocol PRN Reason: Pain, Severe (Pain Scale 7-10) Last Admin: 05/18/22 12:06 Dose: 0.5 mg Ceftriaxone Sodium 1 gm/ (Sodium Chloride) 50 mls @ 100 mls/hr IV Q24H [facility] Last Infusion: 05/18/22 13:02 Dose: Infused Ibuprofen (Ibuprofen 600 Mg Tablet) 600 mg PO BID@0900,1500 [facility] Last Admin: 05/18/22 16:00 Dose: Not Given Lorazepam (Lorazepam 2 Mg/Ml Vial) 0.5 mg IVPUSH Q6H PRN PRN Reason: Anxiety Magnesium Hydroxide (Milk Of Magnesia 30 Ml Oral.Susp) 30 ml PO DAILY PRN PRN Reason: Constipation Last Admin: 05/16/22 10:37 Dose: 30 ml Melatonin (Melatonin 3 Mg Tablet) 6 mg PO BEDTIME PRN PRN Reason: Insomnia Melatonin (Melatonin 3 Mg Tablet) 6 mg PO BEDTIME [facility] Last Admin: 05/17/22 21:40 Dose: 6 mg Multivitamins/Vitamin C (Multivitamin Tablet) 1 tab PO DAILY [facility] Last Admin: 05/18/22 07:37 Dose: 1 tab Pt Own (Memantine 14 Mg Capsule,Sprinkle ,Er 24hr) 1 cap PO DAILY [facility] Omeprazole (Omeprazole 20 Mg Capsule.Dr) 20 mg PO BID [facility] Last Admin: 05/18/22 07:36 Dose: 20 mg Sodium Chloride (0.9 % Sodium Chloride Flush 3 Ml Syringe) 3 ml IVFLUSH QSHIFT [facility] Last Admin: 05/18/22 15:53 Dose: 3 ml Tamsulosin HCl (Tamsulosin Hcl 0.4 Mg Capsule) 0.4 mg PO BEDTIME [facility] Last Admin: 05/17/22 21:41 Dose: 0.4 mg Home Medications Medication Instructions Recorded Confirmed Last Taken Type acetaminophen 500 mg tablet 1,000 mg PO TID@0600,1200,1800 05/03/22 05/15/22 Unknown History citalopram 20 mg tablet 20 mg PO BEDTIME 05/03/22 05/15/22 Unknown History ibuprofen 600 mg tablet 600 mg PO BID@0900,1500 05/03/22 05/15/22 Unknown History melatonin 5 mg tablet 5 mg PO BEDTIME 05/03/22 05/15/22 Unknown History multivitamin 1 tab PO DAILY 05/03/22 05/15/22 Unknown History omega-3 fatty acids 1 cap PO DAILY 05/03/22 05/15/22 Unknown History pantoprazole 40 mg tablet,delayed 1 tab PO BID 05/03/22 05/15/22 Unknown History release carbidopa 25 mg-levodopa 100 mg 1 tab PO DAILY@0600,0900,1200 05/11/22 05/15/22 Unknown History tablet carbidopa 25 mg-levodopa 100 mg 1 tab PO DAILY@1500,1800 05/15/22 05/15/22 Unknown History tablet tamsulosin 0.4 mg capsule 0.4 mg PO BEDTIME 05/15/22 05/15/22 Unknown History tramadol 50 mg tablet 50 mg PO Q8H PRN Pain 05/15/22 05/15/22 Unknown History memantine 14 mg capsule 1 cap PO DAILY 05/18/22 05/18/22 Unknown History sprinkle,extended release 24hr Exam Exam Date and Time: May 18, 2022 1643 Height,Weight and Vital Signs: Height 5 ft 8 in Weight 74.7 kg Last Vital Signs Temp 98.7 F 06/29/22 16:36 Pulse 66 05/18/22 16:36 Resp 16 05/18/22 16:36 BP 151/82 H 05/18/22 16:36 Pulse Ox 96 05/18/22 16:36 O2 Del Method 05/18/22 16:36 Pertinent Lab Results Pertinent Lab Results: Laboratory Tests 05/15/22 05/15/22 05/15/22 01:48 01:48 01:48 WBC 14.7 H RBC 3.57 L Hgb 10.6 L Hct 32.3 L MCV 90.5 MCH 29.7 MCHC 32.8 RDW 14.7 Plt Count 188 D MPV 9.1 L Immature Gran % (Auto) 0.6 H Neut % (Auto) 88.1 H Lymph % (Auto) 4.5 L [place] % (Auto) 6.5 Eos % (Auto) 0.1 Baso % (Auto) 0.2 Lymph # (Auto) 0.7 L [place] # (Auto) 1.0 Eos # (Auto) 0.0 Baso # (Auto) 0.0 Abs Immat Gran (auto) 0.09 H Absolute Neuts (auto) 12.9 H Absolute Nucleated RBC 0.000 Nucleated RBC % (auto) 0.0 Smear Tech's Comments PT INR Sodium 138 Potassium 4.2 Chloride 108 Carbon Dioxide 23 Anion Gap 11 L BUN 29 H Creatinine 0.92 Estim Creat Clear Calc 71.2 Estimated GFR > 60 Random Glucose 152 H D Lactic Acid Calcium 9.1 D Magnesium 1.8 Total Bilirubin 1.1 H Direct Bilirubin 0.5 AST 11 ALT < 6 Alkaline Phosphatase 92 Total Protein 6.3 L Albumin 3.9 Lipase 22 Procalcitonin Urine Color Urine Appearance Urine pH Ur Specific Jewett Urine Protein Urine Glucose (UA) Urine Ketones Urine Blood Urine Nitrite Ur Leukocyte Esterase Urine RBC Urine WBC Ur Squamous Epith Cells Urine Bacteria COVID-19 (JUAN) Negative COVID-19 Clin Com See Note 05/15/22 05/15/22 05/15/22 01:48 01:48 01:48 WBC RBC Hgb Hct MCV MCH MCHC RDW Plt Count MPV Immature Gran % (Auto) Neut % (Auto) Lymph % (Auto) [place] % (Auto) Eos % (Auto) Baso % (Auto) Lymph # (Auto) [place] # (Auto) Eos # (Auto) Baso # (Auto) Abs Immat Gran (auto) Absolute Neuts (auto) Absolute Nucleated RBC Nucleated RBC % (auto) Smear Tech's Comments PT 15.2 H INR 1.3 H Sodium Potassium Chloride Carbon Dioxide Anion Gap BUN Creatinine Estim Creat Clear Calc Estimated GFR Random Glucose Lactic Acid 1.4 Calcium Magnesium Total Bilirubin Direct Bilirubin AST ALT Alkaline Phosphatase Total Protein Albumin Lipase Procalcitonin 1.48 Urine Color Urine Appearance Urine pH Ur Specific Jewett Urine Protein Urine Glucose (UA) Urine Ketones Urine Blood Urine Nitrite Ur Leukocyte Esterase Urine RBC Urine WBC Ur Squamous Epith Cells Urine Bacteria COVID-19 (JUAN) COVID-19 Clin Com 05/15/22 05/16/22 05/16/22 01:48 08:24 08:24 WBC 11.5 H Cancelled RBC 3.31 L Cancelled Hgb 9.9 L Cancelled Hct 30.6 L Cancelled MCV 92.4 Cancelled MCH 29.9 Cancelled MCHC 32.4 Cancelled RDW 15.0 Cancelled Plt Count 149 L Cancelled MPV 9.8 Cancelled Immature Gran % (Auto) 1.1 H Neut % (Auto) 90.6 H Lymph % (Auto) 3.1 L [place] % (Auto) 4.3 Eos % (Auto) 0.7 Baso % (Auto) 0.2 Lymph # (Auto) 0.4 L [place] # (Auto) 0.5 Eos # (Auto) 0.1 Baso # (Auto) 0.0 Abs Immat Gran (auto) 0.13 H Absolute Neuts (auto) 10.4 H Absolute Nucleated RBC 0.000 Cancelled Nucleated RBC % (auto) 0.0 Cancelled Smear Tech's Comments VERIFIED PT INR Sodium Potassium Chloride Carbon Dioxide Anion Gap BUN Creatinine Estim Creat Clear Calc Estimated GFR Random Glucose Lactic Acid Calcium Magnesium Total Bilirubin Direct Bilirubin AST ALT Alkaline Phosphatase Total Protein Albumin Lipase Procalcitonin Urine Color YELLOW Urine Appearance HAZY Urine pH 5.5 Ur Specific [place] 1.020 Urine Protein TRACE Urine Glucose (UA) NEG Urine Ketones NEG Urine Blood 3+ H Urine Nitrite POS H Ur Leukocyte Esterase 1+ H Urine RBC 10-14 H Urine WBC 30-49 H Ur Squamous Epith Cells NONE Urine Bacteria 3+ COVID-19 (JUAN) COVID-19 Clin Com Narrative Narrative: Pt doesnt cooperate to examine his Mallampati Airway TM Dist: >3cm Neck ROM: Full Loose/Missing/Broken Teeth: No Heart: RRR Lungs: CTA Assessment and Plan Final Anesthetic Review Family History of Problems with Anesthesia: No History of Problems with Anesthesia: No NPO: Yes ASA Class: III Final Preanesthetic Review: No Changes in Pt Med Stat, Consent Obtained/Reviewed, Anes Risks/Benef Reviewed and DNR Form (If Appl.) Patient Risk: Intermediate Procedure Risk: Low Anesthetic Plan Anesthetic Plan: GA and MAC: Disposition: Standard PACU
--- NOTE | 2022-05-18 17:43 | MHC.SHP ---
Pre-Procedural Eval Section A Date of Service: 05/18/22 The patient is an INPATIENT: Yes Changes since office visit: No Cold of Flu in the past 2 weeks, No New Medical Problems, No Changes in Medication and No Patient answered all questions The History & Physical has been completed within 30 days and I have reviewed it.: Yes Section B Chief Complaint: sepsis and uti Relevant Family History (Specify if Yes): No Relevant Social History: None Present Medications: see Short Stay Collaborative assessment Medical History: Significant History History of Previous Operations: No relevant previous surgery Allergies: Allergies Allergy/AdvReac Type Severity Reaction Status Date / Time No Known Allergies Allergy Verified 05/11/22 15:47 Review of Systems Sugical H&P ROS: Negative: Constitution, Cardiovascular, Respiratory, Neurological, Psychiatric, Hem-Onc, Allergic/Immunologic, Gastrointestinal, Genitourinary, Musculoskeletal, Integumentary, Endocrine and Eyes/Ears/Nose/Throat Exam Surgical H&P Exam: Normal: HEENT, Normal: Heart, Normal: Lungs, Normal: Extremities, Normal: Abdomen, Normal: Skin and Normal: Neurological Plan Diagnosis/Plan: Unchanged (cystoscopy with suprapubic tube placement) I have reviewed the history and physical and performed a pertinent physical examination on my patient. No changes have occurred unless specified.
--- NOTE | 2022-05-18 18:51 | W.PM.OPN ---
Operative Note Operative Note Date of Service: 05/18/22 Narrative: PreOperative Diagnosis:?neurogenic bladder Post Operative Diagnosis:?neurogenic bladder Procedure:? 1. Cystoscopy 2. Suprapubic tube placement Surgeon: Dr Shaggy Hull Anesthesia:?Sedation plus local Indications for procedure: failed multiple voiding trials with 1000 and 1500cc residuals Procedure: After informed consent was verified the patient was brought to the operating room and placed in a supine position.? Anesthesia was administered per protocol. The patient was placed in a modified dorsal lithotomy position and prepped and draped in a sterile fashion. A safety pause was performed confirming patient identity, procedure and antibiotics. A 22 Portuguese cystoscope was inserted per urethra. Bladder was examined in its entirety. No abnormalities seen. Air bubble was located at the dome of the bladder. A finder needle was inserted 2 fingerbreaths above the symphysis pubis on the abdomen into the bladder.? The needle was visualized in the bladder via cystoscopy. Local anesthetic was infiltrated subcutaneously around the needle introduction site. A small, 1cm horizontal incision was made.? A trocar introducer was advanced through the abdominal wall into the bladder under visualization. The obturator was removed and a 16 Fr fonseca catheter placed. 7cc was used to inflate the balloon. The external portion of the trocar was removed. Dressing was placed, the bladder was emptied, and a drainage bag was attached. The patient tolerated the procedure and was transferred in stable condition to the recovery area. Suprapubic tube will be changed in 1 month with a follow-up office visit.
[2022-05-18] MEDS: Heparin Sodium,Porcine 5,000 UNIT/ML VIAL 5000 UNIT SUBCUT (20:05)
[2022-05-18] MEDS: Tamsulosin HCL 0.4 MG CAPSULE PO (20:05)
[2022-05-18] MEDS: Escitalopram Oxalate 10 MG TABLET PO (20:05)
[2022-05-18] MEDS: Carbidopa/Levodopa CR 25/100 TABLET.ER 1 TAB PO (20:05)
[2022-05-18] MEDS: Melatonin 3 MG TABLET 6 MG PO (20:05)
[2022-05-18] MEDS: Ibuprofen 600 MG TABLET PO (20:26)
[2022-05-19 03:46] VITALS: BP 161/91; PULSE 72; RESP 17; TEMP 36.4; O2SAT 97
[2022-05-19] MEDS: Carbidopa/Levodopa 25/100 TABLET 1.5 TAB PO ×4 (05:18→15:11)
[2022-05-19] MEDS: Acetaminophen 325 MG TABLET 975 MG PO ×2 (05:18→11:36)
[2022-05-19 07:37] VITALS: BP 156/86; PULSE 69; RESP 16; TEMP 36.5; O2SAT 96
[2022-05-19] MEDS: Multivitamin TABLET 1 TAB PO (08:49)
[2022-05-19] MEDS: Ibuprofen 600 MG TABLET PO (08:49)
[2022-05-19] MEDS: Finasteride 5 MG TABLET PO (08:51)
[2022-05-19] MEDS: 0.9 % Sodium Chloride Flush 3 ML SYRINGE IVFLUSH (08:51)
[2022-05-19] MEDS: MEMANTINE 14 MG 1 EACH PO (08:51)
[2022-05-19] MEDS: Omeprazole 20 MG CAPSULE.DR PO (08:51)
[2022-05-19] MEDS: Heparin Sodium,Porcine 5,000 UNIT/ML VIAL 5000 UNIT SUBCUT (08:57)
--- NOTE | 2022-05-19 10:24 | P.DS_ITS ---
DS: Providers Provider Date of Service: 05/19/22 Date of admission: 05/15/22 08:27 Date of discharge: 05/19/22 Primary care physician: CATALINA JOSE Consults: 05/16/22 10:33 Consult to Urology Routine Consulting Provider: Shaggy Hull Reason for consultation: urinary retention Has provider been notified: No 05/16/22 10:38 Consult to Infectious Diseases Routine Consulting Provider: Rafia Vines Reason for consultation: Gram negative mikhail sepsi Has provider been notified: No Attending physician on discharge: Dk Lomax Discharging clinician: Norma López DS: Diagnosis Discharge Diagnosis (1) Acute UTI: Status: Acute DS: Summary Hospital Course Hospital Course: From H&P on day of admission 71 yo male hx of parkinson's, dementia, osteoarthritis of the right hip (due for surgery June 02). He was admitted to [facility] at the end of February with aspiration pneumonia and found to have esophageal stricture and s/p dilatation and has been tolerating regular diet. He was subsequently send to [facility] in [facility] and later transfereed to [facility] and later transition to [facility] rehab where he coontracted [facility] and was at [facility] from 05/02 to and was then discharged back to [facility] where he was noted to have urinary retention and there were not able to insert Fonseca so send to the ED and found to have UTI and was hypotensive by EMS eval and once in the ED. A fonseca inserted and given Ceftriaxone.? Her daughter at the bedside was very helpful in providing history Discharge diagnoses Sepsis/bacteremia secondary to UTI Urinary retention status post suprapubic catheter placement Dementia Severe osteoarthritis the right Patient was admitted to the hospital for Sepsis due to UTI. He was started IV ceftriaxone. Urine cultures and blood cultures both grew Providencia stuartii- sensitive to Ceftriaxone. He was seen in consultation by Infectious Diseases who recommended Ceftin 500 b.i.d. times 21 days on discharge. Blood pressure was initially low likely secondary to sepsis, however blood pressure has rebounded. Leukocytosis has improved. Urinary retention. Patient was seen in consultation by Urology due to ongoing issue with urinary retention. He was continued on Flomax and Proscar was added by the urologist. Urology recommended suprapubic tube placement which was placed on May 18. He will be discharged home with visiting nurses and should call to schedule follow-up appointment with Urology for suprapubic tube change in 1 month. He was continued on other baseline medications during his hospitalization. Severe right hip osteoarthritis. He is scheduled for hip replacement in the middle of May with [facility], this may need to be delayed due to current infection. Would call to discuss with provider at [facility]. Time Spent with Patient Time attestation: Total time spent providing and/or coordinating discharge services: Discharge coordination time: Greater than 30 minutes Quality: Safe Use of Opioids Does Pt have an Active Cancer Diagnosis on the Problem List?: No Quality: Stroke Does the patient have a stroke diagnosis?: No Physical Exam Vital Signs: Vital Signs: Last Vital Signs Temp 97.7 F 05/19/22 07:37 Pulse 69 05/19/22 07:37 Resp 16 05/19/22 07:37 BP 156/86 H 05/19/22 07:37 Pulse Ox 96 05/19/22 07:37 O2 Del Method 05/19/22 07:37 O2 Flow Rate 6 05/18/22 19:00 BMI result Body Mass Index 25.0 DS: Data Data Completed and Pending Labs on day of discharge: Preliminary micro results at discharge 05/15/22 01:48 Blood Culture - Preliminary Blood - Venous No growth after 48 hours. Discharge Plan Discharge Patient Disposition: Home Health Service Discharge Diagnosis: Sepsis/bacteremia secondary to UTI Neurogenic bladder Referrals: [facility] [Outside] - 1 Day (NOW [facility] HOME OT/PT) Shaggy Hull MD [Physician] - 1 Week CATALINA JOSE [Primary Care Provider] - 1 Week Discharge Medications: New finasteride [Proscar] 5 mg Tablet 5 mg PO DAILY 30 Days Qty: 30 0RF cefuroxime axetil 500 mg tablet 500 mg PO BID 17 Days Qty: 34 0RF Continued carbidopa-levodopa 25-100 mg tablet extended release 1 tab PO BEDTIME Qty: 90 3RF Rx Instructions: at 2100 tamsulosin 0.4 mg Capsule 0.4 mg PO BEDTIME carbidopa-levodopa 25-100 mg tablet 1 tab PO DAILY@1500,1800 memantine 14 mg capsule,sprinkle,ER 24hr 1 cap PO DAILY tramadol 50 mg Tablet 50 mg PO Q8H PRN (Reason: Pain) Qty: 20 0RF multivitamin Tablet 1 tab PO DAILY acetaminophen 500 mg Tablet 1,000 mg PO TID@0600,1200,1800 pantoprazole 40 mg tablet,delayed release (DR/EC) 1 tab PO BID omega-3 fatty acids Capsule 1 cap PO DAILY melatonin 5 mg Tablet 5 mg PO BEDTIME citalopram 20 mg tablet 20 mg PO BEDTIME carbidopa-levodopa 25-100 mg tablet 1 tab PO DAILY@0600,0900,1200 Rx Instructions: 0600, 0900, 1200, 1500, 1800 per daughter report Discontinued ibuprofen 600 mg Tablet 600 mg PO BID@0900,1500 Discharge Orders: Discharge Order (Routine); Ordered 05/19/22 Ordered By: Norma López Activity on Discharge: As tolerated Stand Alone Forms: Patient Portal Discharge page Care Plan Goals: See below Health Concerns: Sepsis secondary to UTI/bacteremia Neurogenic bladder with suprapubic tube placement Plan of Treatment: Complete course of antibiotics as prescribed Call to schedule follow-up appointment with Urology Suprapubic tube will be changed in 1 month by Urology Start taking proscar as recommended by urology Recommend to avoid NSAIDs until urine clears Call to follow-up with orthopedics for plan for pain control Assessment: See discharge summary Discharge Date/Time: 05/19/22 15:20
--- NOTE | 2022-05-19 11:11 | HO.POSTANES ---
Post Anesthesia Evaluation Post Anesthesia Evaluation Vital Signs: Vital Signs Temp Pulse Resp BP Pulse Ox O2 Del Method 05/19/22 07:37 97.7 F 69 16 156/86 H 96 Room Air 05/19/22 03:46 97.6 F 72 17 161/91 H 97 Room Air 05/18/22 23:36 97.4 F 86 18 103/63 95 Room Air Anesthesia: General Mental Status: Awake Pain Control: Satisfactory Nausea/Vomiting: None Hydration: Adequate Anesthesia-Related Issues: No Anes. Related Issues
[2022-05-19] MEDS: cefTRIAXone sodium 1 GM in 0.9 % Sodium Chloride 50 ML IV (11:36)
[2022-05-19 11:44] VITALS: BP 92/63; PULSE 80; RESP 17; TEMP 36.6; O2SAT 96
--- NOTE | 2022-05-19 12:46 | P.F2F_ITS ---
Service Date Service Date: 05/19/22 Encounter Date of encounter: 05/19/22 Reasons for Services Signs and symptoms assessed: Needs penitentiary for assistance with managing New suprapubic catheter, medication management Reason for penitentiary: medication management and other (New suprapubic catheter) MD Overseeing Care: CATALINA JOSE Homebound: Leaving the home is medically contraindicated at this time without the asist of a device and/or another person due th the listed conditions above and below. Reason homebound: unsteady gait / fall risk and cognitively impaired / unsafe Certification: Based on the above findings, I certify that this patient is confined to the home and needs intermittent penitentiary care, physical therapy and/or speech therapy, or continues to need occupational therapy. The patient is under my car e, and I have initiated the establishment of the plan of care. The patient will be followed by a physician who will periodically review the plan of care.
--- NOTE | 2022-05-19 13:56 | MHC.CM.PN ---
PATIENT DAUGHTER IS IN ROOM TO TRANSPORT HOME. SHE HAS SECURED A WHEEL CHAIR. SHE IS ALSO AWARE THAT [facility] WILL BE IN CONTACT TO SECURE BEST TIME FOR SERVICES.
--- NOTE | 2022-05-19 15:29 | PM.UROPN ---
Subjective Subjective Date of Service: 05/19/22 Interval history: Postop day 1 Doing well with suprapubic tube 4 week follow-up suprapubic tube change Daughter was present Physical Exam Vital Signs: Vital Signs: Last Vital Signs Temp 98 F 05/19/22 11:44 Pulse 80 05/19/22 11:44 Resp 17 05/19/22 11:44 BP 92/63 05/19/22 11:44 Pulse Ox 96 05/19/22 11:44 O2 Del Method 05/19/22 11:44 O2 Flow Rate 6 05/18/22 19:00 BMI result Body Mass Index 25.0 Const: General: cooperative, healthy appearing, comfortable and no acute distress Orientation/consciousness: patient oriented x3 HEENT: Face and sinus: Yes normal facial exam Mouth: moist mucous membranes Neck: Neck: Yes normal visual inspection, Yes full ROM and Yes trachea midline Chest: Chest palpation & inspection: normal inspection of the chest Resp: Effort & Inspection: normal respiratory effort, able to speak in complete sentences and no respiratory distress GI: Inspection: Yes normal to inspection Back/Spine/Pelvis: Cervical Spine: normal cervical lordosis Thoracic/Lumbar Spine: thoracic and lumbar spine normal to inspection Skin: General skin exam: no rashes or lesions noted Neuro: General: patient oriented x3, tone normal and moves all extremities Extrem: General: Yes normal to inspection and Yes capillary refill normal Urology Results Labs CBC & Chem 7: 05/16/22 08:24 05/15/22 01:48 Progress Note: A&P Assessment and plan (1) Acute urinary retention: Status: Acute (2) Acute UTI: Status: Acute Plan Four week follow-up outpatient suprapubic tube change Time Spent With Patient Time: Total time spent is greater than 50% in coordination of care (as documented) at patient's floor/unit and/or counseling patient: Progress Note: Quality Stroke Does the patient have a stroke diagnosis?: No
== END 2022-05-19 15:20 | disposition home health service (06) | DRG 872 ==
LOC: HO.ED 03:07 → HO.EDOVER 08:38 → HO.S3 05-16 07:09
PROVIDERS: Urology; Admitting Provider Internal Medicine; Emergency Provider Emergency Medicine; PCP Emergency Medicine; Responsible Provider Physician Assistant Medical; Visit Provider Physician Assistant Medical
PROC: 0TJB8ZZ Inspection of Bladder, Via Natural or Artificial Opening Endoscopic (ICD-10-PCS; CPT 52000; principal; 2022-05-18 17:00)
PROC: 0T9B40Z Drainage of Bladder with Drainage Device, Percutaneous Endoscopic Approach (ICD-10-PCS; CPT 51102; 2022-05-18 17:00)
DX: A41.59 Other Gram-negative sepsis (principal); N39.0 Urinary tract infection, site not specified; N31.9 Neuromuscular dysfunction of bladder, unspecified; Z66 Do not resuscitate; M16.11 Unilateral primary osteoarthritis, right hip; R33.9 Retention of urine, unspecified; G20 Parkinson's disease; D72.829 Elevated white blood cell count, unspecified; F02.80 Dementia in other diseases classified elsewhere, unspecified severity, without behavioral disturbance, psychotic disturbance, mood disturbance, and anxiety; Z20.822 Contact with and (suspected) exposure to COVID-19; Z79.899 Other long term (current) drug therapy
CPT/HCPCS: 36415; 51798; 71045; 80048; 80076; 81001; 83605; 83690; 83735; 84145; 85025; 85610; 87040; 87077; 87086; 87088; 87186; 87205; 87635; 96361; 96374; 96375; 99285; C1758; J0131; J0696; J1170; J2270; J2795; J3010

== ENCOUNTER → 2022-06-03 10:26 | Outpatient (BNVA) | payer MEDICARE, SELFPAY | PROVIDERS: PCP Internal Medicine; Visit Provider Psychiatry & Neurology Neurology | DX: G20 Parkinson's disease (principal); F02.80 Dementia in other diseases classified elsewhere, unspecified severity, without behavioral disturbance, psychotic disturbance, mood disturbance, and anxiety; R44.3 Hallucinations, unspecified; K59.00 Constipation, unspecified; Z79.899 Other long term (current) drug therapy | CPT/HCPCS: Q3014 ==